=== PATIENT | female | born 1940 | race Caucasian/White ===

== ENCOUNTER 2017-12-22 15:07 | Observation (INO) | payer MEDICARE, SELFPAY ==
[2017-12-22] VITALS (10 sets, daily range): BP systolic 115–146; BP diastolic 38–70; PULSE 78–96; RESP 16–18; TEMP 36.7–36.9; O2SAT 92–99; BMI 37.0; BMI 36.1
--- NOTE | 2017-12-22 15:31 | EKG12_ITS ---
Test Reason : OTHER PAIN Blood Pressure : / mmHG Vent. Rate : 075 BPM Atrial Rate : 075 BPM P-R Int : 218 ms QRS Dur : 108 ms QT Int : 388 ms P-R-T Axes : 069 -23 035 degrees QTc Int : 433 ms Sinus rhythm with 1st degree A-V block Otherwise normal ECG Confirmed by LYNNE SEGAL, MARIELLA ([id number]), clinical editor TRAM REZA ([id number]) on 12/24/2017 9:57:25 AM Referred By: GENESIS Confirmed By:MARIELLA BATISTA MD
--- NOTE | 2017-12-22 15:31 | CT_ITS ---
STUDY: CTA CHEST REASON FOR EXAM: Female, 77 years old. Acute chest and back pain RADIATION DOSAGE (If Supplied By Facility): CTDIvol = ( 15.76 ) mGy, DLP = ( 558.47 ) mGycm TECHNIQUE: The examination was performed with the intravenous administration of 100 ml of Isovue 370 contrast material. Post-processing of the angiographic images was performed, with multiplanar reformation and 3D reconstruction. Individualized dose optimization techniques were used for this CT. COMPARISON: None. FINDINGS: Normal enhancement of the main pulmonary artery and right and left pulmonary arteries. Normal enhancement of the bilateral peripheral pulmonary arteries. There is no demonstrated pulmonary embolism. There is atherosclerotic calcification of the aortic arch with tortuosity. There is no demonstrated aortic dissection. Normal heart and pericardium. There are calcifications of the coronary arteries. Normal mediastinum. Normal hilar regions. There is peribronchial thickening. The lungs are hyper expanded, with flattening of the hemidiaphragms. Chronic interstitial changes in both lung gaona, no superimposed infiltrate or effusion. Normal pleura. Normal chest wall structures. There are extensive degenerative changes of thoracic spine with an increased kyphosis. Limited cuts through the upper abdomen show a retrocardiac hiatal hernia. CT/CTA Chest W/WO Contrast IMPRESSION: No demonstrated PE, or thoracic aortic aneurysm or dissection. Chronic interstitial changes in both lung gaona, no superimposed acute pulmonary process Calcified coronary vessels Extensive degenerative bony changes with bridging anterior osteophytic spurs and increased kyphosis Electronically Signed: Erwin Lizama MD at 17:07 EDT , Service support ,
--- NOTE | 2017-12-22 15:37 | ED.DCSUM_ITS ---
- ER Visit Summary Date of Service: 12/22/17 Chief Complaint: [] Upper back pain while eating lunch today History of Present Illness: The patient is a 77 F [] she complains of pain to the upper back that went from the left scapular to the right scapula today while eating lunch, this occurred about an hour or 2 ago, she now indicates the pain has localized to the left scapular region. She has had no nausea or vomiting no fever no cough no actual chest pain, she has no history of ID PE or DVT or dissection. She indicates using a chicken sandwich nothing that could have made her L she is has no dysphasia or dysphonia or difficulty swallowing and no other complaints, she has full range of motion of her left upper extremity movement of the shoulder and left arm not necessarily exacerbate her pain, she has had no numbness weakness or paresthesias and again no chest pain or abdominal pain Physical Examination: [] She is resting comfortably in the bed she is a frail- appearing woman she has sort short stature, she is hunched over and she has a chronic curvature to her upper spine, she indicates the pain is localized to her left scapular area the lungs are clear the heart tones are unremarkable the C- spine T-spine lumbar spine are unremarkable palpation of the left scapular area reveals no exacerbation of her pain, she has full range of motion of her upper extremities bilaterally, capillary refill to the hands and pulses are symmetric neurologically she is awake alert moving all 4 with normal strength the lumbar back abdomen and pelvis lower extremities are unremarkable her speech is easy to understand and clear. Test Results: [] Emergency Department Course and Treatment: [] The etiology of the symptoms are unclear she is not prone to this type of pain she was feeling fine before she started eating lunch it is not clear if the lunch actually did do with her symptoms, given her age and the fact she is having upper back pain the differential would include ID dissection PE etc. comprehensive workup labs EKG troponin CTA The patient's laboratory workup is unremarkable initial EKG negative for anything acute, chest x-ray negative per radiology given her complaints of pain in her age she was sent for CTA that report is pending, she was remedicated with morphine continues to complain of pain in her left scapular area, she indicates she lives alone at home has a treasury associate that comes in once or twice a week she does not feel comfortable with discharge home because of her pain has no one to help her at home. Given all of the above given her age the sudden onset of this upper back pain the differential is rather extensive and it could certainly represent an anginal type equivalent, I believe would be appropriate to admit her for chest pain workup, I spoke with the hospitalist they will will admit her as long as CT CTA shows no signs of dissection,, CTA read by radiology as showing nothing acute no PE or dissection repeat troponin pending that will be checked by the admitting service Treatment Plan: [] Disposition: [] Admit stable Impression: [] Chest pain, left scapular pain, concern for angina This note was generated with [employer] dictation software. It may contain incorrect words, spelling, and punctuation that were not noted in review of the chart prior to signing ED Disposition - Plan for ED Patient: Chief Complaint: Other, Pain/Inj Referrals: Eric Gillespie MD [Primary Care Provider] -
[2017-12-22 15:53] LABS: Absolute Lymphocyte Count 1.22 X10^3/ul (0.83-4.51); Absolute Neutrophil Count 4.8 X10^3/uL (2.0-7.7); Basophil# 0.01 X10^3/uL; Basophil% 0.1 % (0-1); Eosinophil# 0.08 X10^3/uL; Eosinophils% 1.2 % (0-5); Hematocrit 41.5 % (37-47); Hemoglobin 13.6 g/dl (12.0-15.0); Lymphocyte # 1.22 X10^3/ul (4.0); Lymphocyte % 17.8 % (19-41); Mean Corp Hgb Conc 32.8 g/gl (32-36); Mean Corpuscular Hgb 29.8 pg (27.0-32.0); Mean Platelet Vol. 9.6 fl (6.2-12.0); Monocyte# 0.73 X10^3/uL; Monocyte% 10.7 % (0-10); Neutrophil % 70.1 % (47-70); POSITIVE COUNT NO; POSITIVE DIFFERENTIAL NO; POSITIVE MORPHOLOGY NO; Platelet Count 243 K/mm3 (150-450); RBC Distribution Width CV 12.9 % (11.6-14.6); RBC Distribution Width SD 42.2 fl (35.1-43.9); Red Blood Count 4.56 M/mm3 (4.2-5.4); White Blood Count 6.9 K/mm3 (4.4-11.0)
[2017-12-22] MEDS: Morphine 4 MG/ML Syringe IV ×2 (16:00→17:35)
[2017-12-22] MEDS: Aspirin 81 MG TAB.CHEW 324 MG PO (16:00)
[2017-12-22] MEDS: Ondansetron 4 MG/2 ML Vial IV (16:01)
--- NOTE | 2017-12-22 16:05 | RAD_ITS ---
STUDY: X-RAY CHEST REASON FOR EXAM: Female, 77 years old. Acute shoulder pain TECHNIQUE: Single AP portable view of the chest. COMPARISON: 10/24/2012 FINDINGS: EKG leads overlie the chest Lungs are hyperexpanded with chronic interstitial changes, no superimposed acute pulmonary process. There is no demonstrated pleural abnormality. Normal size heart. Normal mediastinum and quinton. Normal visualized pulmonary arteries. Normal visualized aortic arch and descending thoracic aorta. There are diffuse degenerative changes of the visualized thoracic spine. There is degenerative osteoarthritis of the bilateral shoulders. There is no demonstrated abnormality of the visualized soft tissue structures of the upper abdomen. RAD/Chest 1 View (Portable) IMPRESSION: Hyperexpanded lungs with chronic interstitial changes, no superimposed acute pulmonary process Electronically Signed: Erwin Lizama MD at 16:41 EDT , Service support ,
[2017-12-22 16:10] LABS: Anion Gap 6 (5-15); BUN 8 mg/dL (7-18); BUN/Creat Ratio 9.6 RATIO (10-20); Chloride 95 mmol/L (98-107); Creatinine, Serum 0.83 mg/dL (0.55-1.02); EST Glomerular Filtration Rate 71 mL/min (>60); Est Glom Filt Rate - Afr Amer 85 mL/min (>60); Estimated Creatinine Clearance 69.63 ml/min; Glucose 142 mg/dL (74-106); Potassium 3.6 mmol/L (3.5-5.1); Sodium Level 135 mmol/L (136-145)
[2017-12-22 16:18] LABS: BNP,B-Type NATRIURETIC PEPTIDE 46.7 pg/mL (0-100)
--- NOTE | 2017-12-22 16:34 | EKG12_ITS ---
Test Reason : REPEAT Blood Pressure : / mmHG Vent. Rate : 081 BPM Atrial Rate : 081 BPM P-R Int : 224 ms QRS Dur : 104 ms QT Int : 380 ms P-R-T Axes : 073 -27 031 degrees QTc Int : 441 ms Sinus rhythm with 1st degree A-V block Otherwise normal ECG Confirmed by LYNNE SEGAL, MARIELLA ([id number]), art editor TRAM REZA ([id number]) on 12/24/2017 9:57:42 AM Referred By: GENESIS Confirmed By:MARIELLA BATISTA MD
--- NOTE | 2017-12-22 17:21 | PCM.HP.STD ---
<Bianca Garrison - Last Filed: 12/22/17 17:34> Problem List (1) Hypothyroidism Status: Chronic (2) HLD (hyperlipidemia) Status: Chronic (3) Kyphosis Status: Chronic (4) HTN (hypertension) Status: Chronic History of Present Illness Date of Admission: 12/22/17 Chief Complaint: Intractable upper back pain. The patient is a 77 year old F who presents emergency room due to intractable upper back pain. Patient states she was eating lunch when she suddenly developed sharp pain across her upper back. She denies radiation of pain. Denies chest pain. Denies shortness of breath, dizziness, lightheadedness. She states pain has improved. Continues to have pain in the left scapula area. Tenderness to palpation. Denies cardiac history. Denies history of back pain. Patient has significant kyphosis. Patient denies recent falls or injury. She states she does have a history of falls, most recently February 2017. Lives home alone. Does not use assistive devices. Her past medical history includes hypertension, hyperlipidemia, hypothyroidism, osteoporosis. Past Medical History Past Medical History (Chronic Problems): Chronic Problems Kyphosis (Chronic) HTN (hypertension) (Chronic) Hypothyroidism (Chronic) HLD (hyperlipidemia) (Chronic) Allergies No Known Allergies Allergy (Verified 12/22/17 15:13) Home Medications: Ambulatory Orders Medication Instructions Recorded Calcium Carbonate [Calcium] 600 mg PO BID 11/09/14 Cholecalciferol (VIT D3) [Vitamin 2,000 unit PO DAILY 11/09/14 D] Hydrochlorothiazide [Hctz] 25 mg PO DAILY 11/09/14 Metoprolol Tartrate [Lopressor 12.5 mg PO BID 11/09/14 (Beta [place])] Multivit-Min/FA/Lycopen/Lutein 1 each PO DAILY 11/09/14 [Centrum Silver Tablet] [place]-3 Fatty Acids/Fish Oil [Fish 1 each PO DAILY 11/09/14 Oil 1,000 mg Capsule] Potassium Chloride [Klor-Con M20] 20 meq PO DAILY 11/09/14 Simvastatin [Zocor] 20 mg PO QHS 11/09/14 Levothyroxine Sodium 100 mcg PO DAILY 12/22/17 Vit A/Vit C/Vit E/Zinc/Copper 1 tab PO DAILY 12/22/17 [Preservision Areds Softgel] Surgical History: - - Open reduction and internal fixation, left radius fracture, three-part with volar wrist plating Psychiatric History: No pertinent psych hx 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 Lives: Alone Smoking Status: Never smoker Alcohol: None Drugs: None - *Family History Maternal History Items: High Cholesterol, Heart Disease Paternal History Items: No pertinent history Review of Systems Constitutional: Denies: Chills, Fever, Weight Change HEENT: Denies: Head Aches, Sinus Congestion, Sinus Drainage Cardiovascular: Denies: Chest Pain, Light Headedness, Palpitations, Syncope Respiratory: Denies: Cough, Shortness of breath at rest, Sputum production Gastrointestinal: Denies: Abdominal Pain, Nausea, Vomiting Genitourinary: Denies: Dysuria Musculoskeletal: Reports: - - Back pain, left scapula area pain. Denies: Arm Pain Skin: Denies: Rash, Wounds Neurological: Denies: Numbness, Tingling, Focal weakness Psychiatric: Denies: Anxiety, Depression, Homicidal Ideations, Suicidal Ideations Hematologic/ Lymphatic: Denies: Easy Bruising, Easy Bleeding VTE Information - Inpt Only VTE Present on Admission: No VTE Mechan Device Prophylaxis: None VTE Pharm Prophylaxis ordered?: Yes - Physical Exam General: Alert, Oriented x3, Cooperative, No apparent distress HEENT: Atraumatic, PERRLA, EOMI, Normocephalic Neck: Supple, No JVD, Negative Carotid Bruits Lungs: Clear to auscultation, Normal air movement Cardiovascular: Regular rate, Regular Rhythm, Normal S1, Normal S2, No murmurs Abdomen: Bowel Sounds Present, Soft, Non Tender, Obese Extremities: No clubbing, No cyanosis, No edema, Capillary Refill Less than 3 Seconds, No Calf Tenderness Skin: No rashes, No breakdown Musculoskeletal: Tenderness - To palpation left scapular area Neurological: Cranial nerves II-XII grossly intact, Neuro grossly intact Psych/Mental Status: Normal Affect, Appropriate Vital Signs Temp Pulse Resp BP Pulse Ox 98.1 F 88 17 115/42 L 98 12/22/17 15:09 12/22/17 17:14 12/22/17 17:14 12/22/17 17:14 12/22/17 17:14 Oxygen Delivery Method Room Air Weight: 171 lb 4.787 oz Body Mass Index (BMI) 37.0 Laboratory Tests Past 24 Hrs 12/22/17 12/22/1712/22/18 15:40 15:40 15:40 WBC 6.9 RBC 4.56 Hgb 13.6 Hct 41.5 MCV 91.0 MCH 29.8 MCHC 32.8 RDW 12.9 RDW Differential 42.2 Plt Count 243 MPV 9.6 Immature Gran % (Auto) 0.100 Neut % (Auto) 70.1 H Lymph % (Auto) 17.8 L Ford % (Auto) 10.7 H Eos % (Auto) 1.2 Baso % (Auto) 0.1 Absolute Neuts (auto) 4.8 Absolute Lymphs (auto) 1.22 Total Counted Not Reportable Sodium 135 L Potassium 3.6 Chloride 95 L Carbon Dioxide 34.0 H Anion Gap 6 BUN 8 Creatinine 0.83 Estim Creat Clear Calc 69.63 Est GFR (MDRD) Af Amer 85 Est GFR (MDRD) Non-Af 71 BUN/Creatinine Ratio 9.6 L Glucose 142 H Calcium 9.0 Troponin I < 0.015 B-Natriuretic Peptide 46.7 Assessment/Plan 1. Intractable back pain-chest CTA without evidence of PE or dissection. Chronic interstitial changes in both lungs. No acute pulmonary process. Extensive degenerative bony changes with bridging anterior osteophytic spurs and increased kyphosis. EKG on admission without acute changes. Troponin negative x1. Cycle enzymes. Repeat EKG in a.m. Rule out cardiac etiology. Feel this is musculoskeletal in nature given underlying kyphosis. Left scapular area has tenderness to palpation. PT/OT. PRN pain regimen. Patient lives alone, history of falls. CM consult to assess home needs. 2. Hypertension-stable, continue home hydrochlorothiazide, metoprolol regimen. 3. Hypothyroidism-continue Synthroid regimen. 4. Osteoporosis-continue calcium/vitamin D supplementation. 5. Hyperlipidemia-continue statin. 6. Obesity-encourage diet lifestyle modifications. DVT prophylaxis- Lovenox sc This patient was seen by SHANEKA Pendleton under the supervision of Dr. Gibbs. <Ivet Gibbs - Last Filed: 12/22/17 18:31> History of Present Illness The patient is a 77 year old F [] Past Medical History Allergies No Known Allergies Allergy (Verified 12/22/17 15:13) - Physical Exam Vital Signs Temp Pulse Resp BP Pulse Ox 98.5 F 86 16 144/63 H 94 10/16/18 18:08 12/22/17 18:08 12/22/17 18:08 12/22/17 18:08 12/22/17 18:08 Oxygen Delivery Method Room Air Weight: 166 lb 14.239 oz Body Mass Index (BMI) 36.1 Laboratory Tests Past 24 Hrs 12/22/17 12/22/17 12/22/17 15:40 15:40 15:40 WBC 6.9 RBC 4.56 Hgb 13.6 Hct 41.5 MCV 91.0 MCH 29.8 MCHC 32.8 RDW 12.9 RDW Differential 42.2 Plt Count 243 MPV 9.6 Immature Gran % (Auto) 0.100 Neut % (Auto) 70.1 H Lymph % (Auto) 17.8 L Ford % (Auto) 10.7 H Eos % (Auto) 1.2 Baso % (Auto) 0.1 Absolute Neuts (auto) 4.8 Absolute Lymphs (auto) 1.22 Total Counted Not Reportable Sodium 135 L Potassium 3.6 Chloride 95 L Carbon Dioxide 34.0 H Anion Gap 6 BUN 8 Creatinine 0.83 Estim Creat Clear Calc 69.63 Est GFR (MDRD) Af Amer 85 Est GFR (MDRD) Non-Af 71 BUN/Creatinine Ratio 9.6 L Glucose 142 H Calcium 9.0 Troponin I < 0.015 B-Natriuretic Peptide 46.7 Clinical Impression(s) from Imaging Studies Chest CTA 12/22/17 15:31 IMPRESSION: No demonstrated PE, or thoracic aortic aneurysm or dissection. Chronic interstitial changes in both lung gaona, no superimposed acute pulmonary process Calcified coronary vessels Extensive degenerative bony changes with bridging anterior osteophytic spurs and increased kyphosis Electronically Signed: Erwin Lizama MD at 17:07 EDT , Service support , Chest X-Ray 12/22/17 16:05 IMPRESSION: Hyperexpanded lungs with chronic interstitial changes, no superimposed acute pulmonary process Electronically Signed: Erwin Lizama MD at 16:41 EDT , Service support , Assessment/Plan Hospitalist note: I am seeing this patient in conjunction with Bianca Garrison. I independently seen and examined the patient. History and physical, laboratory data and imaging studies reviewed and I concur with the above admission and treatment plan. Patient presented to the emergency room because of intractable upper back pain. It started around 2:30 PM today all of a sudden, it is on the underneath left shoulder blade, sharp pain, 5 out of 10 in severity, across her upper back, not radiating and without other associated symptoms and without aggravating or relieving factors. She denied shortness of breath, anterior chest pain, palpitation, dizziness or lightheadedness. Her vital signs were stable. Her routine blood work was unremarkable. EKG revealed normal sinus rhythm with first-degree AV block, IL interval was 218 ms. Troponin was negative. BNP was normal. CTA chest showed no PE or dissection, revealed extensive degenerative bony changes and increased kyphosis. Chest x-ray showed no acute findings. - Physical Exam General: Alert, Oriented x3, Cooperative, No apparent distress. HEENT: Atraumatic, PERRLA, EOMI. Neck: Supple, No JVD, Negative Carotid Bruits, Trachea Midline, Thyroid Normal. Lungs: Diminished breath sounds bilateral, otherwise clear, No rhonchi, No wheeze, No rales. Cardiovascular: Regular rate, Regular Rhythm, Normal S1, Normal S2, PMI Normal. Abdomen: Bowel Sounds Present, Soft, Non Tender, Non-Distended, No Hepato-splenomegaly. Extremities: No clubbing, No cyanosis, No edema Skin: No rashes, No breakdown Neurological: Neuro grossly intact Vital Signs are stable Assessment and plan: #1 intractable upper back pain: Unclear etiology. Could be due to extensive degenerative changes of the upper spine as well as increased kyphosis. Patient denies history of fall or trauma. It is unlikely due to CAD. EKG revealed no acute ischemic changes. Troponin is negative. CTA chest showed no PE or dissection. Vital signs are stable. Routine blood work was unremarkable. Plan: Admit to PCU for observation, cardiac monitoring, serial cardiac enzymes, repeat EKG tomorrow morning, pain control with IV morphine as needed, as needed OxyIR, PT OT evaluation and treatment. At this time, no indication for further cardiac workup except for serial cardiac enzymes and repeat EKG tomorrow morning. #2 other chronic medical problems: Stable, continue current medications as above. This note was generated with [employer] software. It may contain incorrect words, spelling, and punctuation that were not noted in checking the note before signing. Code Visit OBSV E&M: 66010 Initial observation care L3
--- NOTE | 2017-12-22 17:26 | HP.PCM_ITS ---
<Bianca Garrison - Last Filed: 12/22/17 17:34> Problem List (1) Hypothyroidism Status: Chronic (2) HLD (hyperlipidemia) Status: Chronic (3) Kyphosis Status: Chronic (4) HTN (hypertension) Status: Chronic History of Present Illness Date of Admission: 12/22/17 Chief Complaint: Intractable upper back pain. The patient is a 77 year old F who presents emergency room due to intractable upper back pain. Patient states she was eating lunch when she suddenly developed sharp pain across her upper back. She denies radiation of pain. Denies chest pain. Denies shortness of breath, dizziness, lightheadedness. She states pain has improved. Continues to have pain in the left scapula area. Tenderness to palpation. Denies cardiac history. Denies history of back pain. Patient has significant kyphosis. Patient denies recent falls or injury. She states she does have a history of falls, most recently February 2017. Lives home alone. Does not use assistive devices. Her past medical history includes hypertension, hyperlipidemia, hypothyroidism, osteoporosis. Past Medical History Past Medical History (Chronic Problems): Chronic Problems Kyphosis (Chronic) HTN (hypertension) (Chronic) Hypothyroidism (Chronic) HLD (hyperlipidemia) (Chronic) Allergies No Known Allergies Allergy (Verified 12/22/17 15:13) Home Medications: Ambulatory Orders Medication Instructions Recorded Calcium Carbonate [Calcium] 600 mg PO BID 11/09/14 Cholecalciferol (VIT D3) [Vitamin 2,000 unit PO DAILY 11/09/14 D] Hydrochlorothiazide [Hctz] 25 mg PO DAILY 11/09/14 Metoprolol Tartrate [Lopressor 12.5 mg PO BID 11/09/14 (Beta [place])] Multivit-Min/FA/Lycopen/Lutein 1 each PO DAILY 11/09/14 [Centrum Silver Tablet] [place]-3 Fatty Acids/Fish Oil [Fish 1 each PO DAILY 11/09/14 Oil 1,000 mg Capsule] Potassium Chloride [Klor-Con M20] 20 meq PO DAILY 11/09/14 Simvastatin [Zocor] 20 mg PO QHS 11/09/14 Levothyroxine Sodium 100 mcg PO DAILY 12/22/17 Vit A/Vit C/Vit E/Zinc/Copper 1 tab PO DAILY 12/22/17 [Preservision Areds Softgel] Surgical History: - - Open reduction and internal fixation, left radius fracture, three-part with volar wrist plating Psychiatric History: No pertinent psych hx CLINICAL OB History: No pertinent CLINICAL OB history Lives: Alone Smoking Status: Never smoker Alcohol: None Drugs: None - *Family History Maternal History Items: High Cholesterol, Heart Disease Paternal History Items: No pertinent history Review of Systems Constitutional: Denies: Chills, Fever, Weight Change HEENT: Denies: Head Aches, Sinus Congestion, Sinus Drainage Cardiovascular: Denies: Chest Pain, Light Headedness, Palpitations, Syncope Respiratory: Denies: Cough, Shortness of breath at rest, Sputum production Gastrointestinal: Denies: Abdominal Pain, Nausea, Vomiting Genitourinary: Denies: Dysuria Musculoskeletal: Reports: - - Back pain, left scapula area pain. Denies: Arm Pain Skin: Denies: Rash, Wounds Neurological: Denies: Numbness, Tingling, Focal weakness Psychiatric: Denies: Anxiety, Depression, Homicidal Ideations, Suicidal Ideatio ns Hematologic/ Lymphatic: Denies: Easy Bruising, Easy Bleeding VTE Information - Inpt Only VTE Present on Admission: No VTE Mechan Device Prophylaxis: None VTE Pharm Prophylaxis ordered?: Yes - Physical Exam General: Alert, Oriented x3, Cooperative, No apparent distress HEENT: Atraumatic, PERRLA, EOMI, Normocephalic Neck: Supple, No JVD, Negative Carotid Bruits Lungs: Clear to auscultation, Normal air movement Cardiovascular: Regular rate, Regular Rhythm, Normal S1, Normal S2, No murmurs Abdomen: Bowel Sounds Present, Soft, Non Tender, Obese Extremities: No clubbing, No cyanosis, No edema, Capillary Refill Less than 3 Seconds, No Calf Tenderness Skin: No rashes, No breakdown Musculoskeletal: Tenderness - To palpation left scapular area Neurological: Cranial nerves II-XII grossly intact, Neuro grossly intact Psych/Mental Status: Normal Affect, Appropriate Vital Signs Temp Pulse Resp BP Pulse Ox 98.1 F 88 17 115/42 L 98 12/22/17 15:09 12/22/17 17:14 12/22/17 17:14 12/22/17 17:14 12/22/17 17:14 Oxygen Delivery Method Room Air Weight: 171 lb 4.787 oz Body Mass Index (BMI) 37.0 Laboratory Tests Past 24 Hrs 1012/22/17 12/22/17 15:40 15:40 15:40 WBC 6.9 RBC 4.56 Hgb 13.6 Hct 41.5 MCV 91.0 MCH 29.8 MCHC 32.8 RDW 12.9 RDW Differential 42.2 Plt Count 243 MPV 9.6 Immature Gran % (Auto) 0.100 Neut % (Auto) 70.1 H Lymph % (Auto) 17.8 L [place] % (Auto) 10.7 H Eos % (Auto) 1.2 Baso % (Auto) 0.1 Absolute Neuts (auto) 4.8 Absolute Lymphs (auto) 1.22 Total Counted Not Reportable Sodium 135 L Potassium 3.6 Chloride 95 L Carbon Dioxide 34.0 H Anion Gap 6 BUN 8 Creatinine 0.83 Estim Creat Clear Calc 69.63 Est GFR (MDRD) Af Amer 85 Est GFR (MDRD) Non-Af 71 BUN/Creatinine Ratio 9.6 L Glucose 142 H Calcium 9.0 Troponin I < 0.015 B-Natriuretic Peptide 46.7 Assessment/Plan 1. Intractable back pain-chest CTA without evidence of PE or dissection. Chronic interstitial changes in both lungs. No acute pulmonary process. Extensive degenerative bony changes with bridging anterior osteophytic spurs and increased kyphosis. EKG on admission without acute changes. Troponin negative x1. Cycle enzymes. Repeat EKG in a.m. Rule out cardiac etiology. Feel this is musculoskeletal in nature given underlying kyphosis. Left scapular area has tenderness to palpation. PT/OT. PRN pain regimen. Patient lives alone, history of falls. CM consult to assess home needs. 2. Hypertension-stable, continue home hydrochlorothiazide, metoprolol regimen. 3. Hypothyroidism-continue Synthroid regimen. 4. Osteoporosis-continue calcium/vitamin D supplementation. 5. Hyperlipidemia-continue statin. 6. Obesity-encourage diet lifestyle modifications. DVT prophylaxis- Lovenox sc This patient was seen by SHANEKA Pendleton under the supervision of Dr. Gibbs. <Ivet Gibbs - Last Filed: 12/22/17 18:31> History of Present Illness The patient is a 77 year old F [] Past Medical History Allergies No Known Allergies Allergy (Verified 12/22/17 15:13) - Physical Exam Vital Signs Temp Pulse Resp BP Pulse Ox 98.5 F 86 16 144/63 H 94 12/22/17 18:08 12/22/17 18:08 12/22/17 18:08 12/22/17 18:08 12/22/17 18:08 Oxygen Delivery Method Room Air Weight: 166 lb 14.239 oz Body Mass Index (BMI) 36.1 Laboratory Tests Past 24 Hrs 12/22/17 12/22/17 12/22/17 15:40 15:40 15:40 WBC 6.9 RBC 4.56 Hgb 13.6 Hct 41.5 MCV 91.0 MCH 29.8 MCHC 32.8 RDW 12.9 RDW Differential 42.2 Plt Count 243 MPV 9.6 Immature Gran % (Auto) 0.100 Neut % (Auto) 70.1 H Lymph % (Auto) 17.8 L [place] % (Auto) 10.7 H Eos % (Auto) 1.2 Baso % (Auto) 0.1 Absolute Neuts (auto) 4.8 Absolute Lymphs (auto) 1.22 Total Counted Not Reportable Sodium 135 L Potassium 3.6 Chloride 95 L Carbon Dioxide 34.0 H Anion Gap 6 BUN 8 Creatinine 0.83 Estim Creat Clear Calc 69.63 Est GFR (MDRD) Af Amer 85 Est GFR (MDRD) Non-Af 71 BUN/Creatinine Ratio 9.6 L Glucose 142 H Calcium 9.0 Troponin I < 0.015 B-Natriuretic Peptide 46.7 Clinical Impression(s) from Imaging Studies Chest CTA 12/22/17 15:31 IMPRESSION: No demonstrated PE, or thoracic aortic aneurysm or dissection. Chronic interstitial changes in both lung ga[place], no superimposed acute pulmonary process Calcified coronary vessels Extensive degenerative bony changes with bridging anterior osteophytic spurs and increased kyphosis Electronically Signed: Erwin Lizama MD at 17:07 EDT , Service support , Chest X-Ray 12/22/17 16:05 IMPRESSION: Hyperexpanded lungs with chronic interstitial changes, no superimposed acute pulmonary process Electronically Signed: Erwin Lizama MD at 16:41 EDT , Service support , Assessment/Plan Hospitalist note: I am seeing this patient in conjunction with Bianca Garrison. I independently seen and examined the patient. History and physical, laboratory data and imaging studies reviewed and I concur with the above admission and treatment plan. Patient presented to the emergency room because of intractable upper back pain. It started around 2:30 PM today all of a sudden, it is on the underneath left shoulder blade, sharp pain, 5 out of 10 in severity, across her upper back, not radiating and without other associated symptoms and without aggravating or relieving factors. She denied shortness of breath, anterior chest pain, palpitation, dizziness or lightheadedness. Her vital signs were stable. Her routine blood work was unremarkable. EKG revealed normal sinus rhythm with first-degree AV block, DE interval was 218 ms. Troponin was negative. BNP was normal. CTA chest showed no PE or dissection, revealed extensive degenerative bony changes and increased kyphosis. Chest x-ray showed no acute findings. - Physical Exam General: Alert, Oriented x3, Cooperative, No apparent distress. HEENT: Atraumatic, PERRLA, EOMI. Neck: Supple, No JVD, Negative Carotid Bruits, Trachea Midline, Thyroid Normal. Lungs: Diminished breath sounds bilateral, otherwise clear, No rhonchi, No wheeze, No rales. Cardiovascular: Regular rate, Regular Rhythm, Normal S1, Normal S2, PMI Normal. Abdomen: Bowel Sounds Present, Soft, Non Tender, Non-Distended, No Hepato- splenomegaly. Extremities: No clubbing, No cyanosis, No edema Skin: No rashes, No breakdown Neurological: Neuro grossly intact Vital Signs are stable Assessment and plan: #1 intractable upper back pain: Unclear etiology. Could be due to extensive degenerative changes of the upper spine as well as increased kyphosis. Patient denies history of fall or trauma. It is unlikely due to CAD. EKG revealed no acute ischemic changes. Troponin is negative. CTA chest showed no PE or dissection. Vital signs are stable. Routine blood work was unremarkable. Plan : Admit to PCU for observation, cardiac monitoring, serial cardiac enzymes, repeat EKG tomorrow morning, pain control with IV morphine as needed, as needed OxyIR, PT OT evaluation and treatment. At this time, no indication for further cardiac workup except for serial cardiac enzymes and repeat EKG tomorrow morning. #2 other chronic medical problems: Stable, continue current medications as above. This note was generated with Emulisation software. It may contain incorrect words, spelling, and punctuation that were not noted in checking the note before signing. Code Visit OBSV E&M: 58359 Initial observation care L3
[2017-12-22] MEDS: Atorvastatin Calcium 10 MG Tablet PO (21:25)
[2017-12-22] MEDS: Metoprolol Tartrate 25 MG Tablet PO (21:25)
[2017-12-23] VITALS (8 sets, daily range): BP systolic 145–150; BP diastolic 63–80; PULSE 64–94; RESP 16–18; TEMP 36.6–36.7; O2SAT 91–94
[2017-12-23] MEDS: 0.9% Normal Saline 1,000 ML 75 ML IV (02:24)
[2017-12-23] MEDS: Levothyroxine 100 MCG Tablet PO (05:42)
--- NOTE | 2017-12-23 05:55 | EKG12_ITS ---
Test Reason : AM EKG Blood Pressure : / mmHG Vent. Rate : 068 BPM Atrial Rate : 068 BPM P-R Int : 216 ms QRS Dur : 102 ms QT Int : 412 ms P-R-T Axes : 065 -19 014 degrees QTc Int : 438 ms Sinus rhythm with 1st degree A-V block Otherwise normal ECG When compared with ECG of 22-DEC-2017 16:45, MANUAL COMPARISON REQUIRED, DATA IS UNCONFIRMED Confirmed by LYNNE SEGAL, MARIELLA ([id number]), newspaper copy editor JAYLA ROMERO ([id number]) on 12/28/2017 10:57:36 AM Referred By: NELL Confirmed By:MARIELLA BATISTA MD
[2017-12-23 06:11] LABS: Absolute Lymphocyte Count 1.28 X10^3/ul (0.83-4.51); Absolute Neutrophil Count 5.3 X10^3/uL (2.0-7.7); Basophil# 0.01 X10^3/uL; Basophil% 0.1 % (0-1); Eosinophil# 0.07 X10^3/uL; Eosinophils% 0.9 % (0-5); Hematocrit 38.8 % (37-47); Hemoglobin 12.3 g/dl (12.0-15.0); Lymphocyte # 1.28 X10^3/ul (4.0); Lymphocyte % 16.9 % (19-41); Mean Corp Hgb Conc 31.7 g/gl (32-36); Mean Corpuscular Volume 91.5 fL (81-99); Mean Platelet Vol. 10.1 fl (6.2-12.0); Monocyte# 0.85 X10^3/uL; Monocyte% 11.2 % (0-10); Neutrophil # 5.33 X10^3/uL (2.7-7.7); Neutrophil % 70.5 % (47-70); Platelet Count 219 K/mm3 (150-450); RBC Distribution Width SD 42.8 fl (35.1-43.9); Red Blood Count 4.24 M/mm3 (4.2-5.4); White Blood Count 7.6 K/mm3 (4.4-11.0)
[2017-12-23 06:17] LABS: POSITIVE COUNT NO; POSITIVE DIFFERENTIAL NO; POSITIVE MORPHOLOGY NO
[2017-12-23 06:32] LABS: Anion Gap 9 (5-15); BUN 7 mg/dL (7-18); BUN/Creat Ratio 16.8 RATIO (10-20); Calcium,Total 8.1 mg/dL (8.5-10.1); Chloride 100 mmol/L (98-107); Creatinine, Serum 0.42 mg/dL (0.55-1.02); EST Glomerular Filtration Rate 157 mL/min (>60); Est Glom Filt Rate - Afr Amer 190 mL/min (>60); Glucose 99 mg/dL (74-106); Sodium Level 136 mmol/L (136-145)
[2017-12-23] MEDS: hydroCHLOROthiazide 25 MG Tablet PO (09:57)
[2017-12-23] MEDS: Metoprolol Tartrate 25 MG Tablet PO (09:57)
[2017-12-23] MEDS: Enoxaparin 40 MG/0.4 ML Syringe SC (09:57)
--- NOTE | 2017-12-23 10:29 | PCM.DC ---
- Discharge Diagnoses Current Active Problems: Current Active and Chronic Problems Kyphosis (Chronic) HTN (hypertension) (Chronic) You will use the following diet at home:: No restrictions Discharge Activity: Return to Normal Activity Call your doctor if you observe: Shortness of breath, Dizziness, Fainting spells, Chest pain Allergies/Adverse Reactions: Allergies No Known Allergies Allergy (Verified 12/22/17 15:13) Medications to take at Discharge Calcium Carbonate [Calcium] 600 mg PO BID 11/09/14 Cholecalciferol (VIT D3) [Vitamin D3] 2,000 unit PO DAILY 11/09/14 Hydrochlorothiazide [Hctz] 25 mg PO DAILY 11/09/14 Metoprolol Tartrate [Lopressor (beta [place])] 25 mg PO BID 11/09/14 Multivit-Min/FA/Lycopen/Lutein [Centrum Silver Tablet] 1 each PO QHS 11/09/14 [place]-3 Fatty Acids/Fish Oil [Fish Oil 1,000 mg Capsule] 1 each PO DAILY 11/09/14 Potassium Chloride [Klor-Con M20] 20 meq PO DAILY 11/09/14 Simvastatin [Zocor] 20 mg PO QHS 11/09/14 Levothyroxine Sodium 100 mcg PO DAILY 12/22/17 Vit A/Vit C/Vit E/Zinc/Copper [Preservision Areds Softgel] 1 tab PO BID 12/22/17 Primary Care Physician: Eric Gillespie MD [Primary Care Provider] - Please follow up with your Primary Care Physician in: 1 Week Test Results: Test results from this visit will be discussed in further detail at your follow-up appointment, if applicable. Proposed Discharge Date: 12/23/17
--- NOTE | 2017-12-23 10:36 | PCM.DC.SUM ---
<Bianca Garrison - Last Filed: 12/23/17 10:43> Discharge Date and Diagnosis - Problem List Patient Problems: Active and Suspected Problems Back pain (Acute) Date of Admission: 12/22/17 Date of Discharge: 12/23/17 - Primary Discharge Diagnosis 1. Intractable upper back pain, suspected secondary to chronic degenerative changes - Secondary Discharge Diagnosis Chronic Problems Kyphosis (Chronic) HTN (hypertension) (Chronic) Hypothyroidism (Chronic) HLD (hyperlipidemia) (Chronic) Hospital Course and Treatment Imaging Results: Diagnostic Data Chest CTA 12/22/17 15:31 IMPRESSION: No demonstrated PE, or thoracic aortic aneurysm or dissection. Chronic interstitial changes in both lung gaona, no superimposed acute pulmonary process Calcified coronary vessels Extensive degenerative bony changes with bridging anterior osteophytic spurs and increased kyphosis Electronically Signed: Erwin Lizama MD at 17:07 EDT , Service support , Chest X-Ray 12/22/17 16:05 IMPRESSION: Hyperexpanded lungs with chronic interstitial changes, no superimposed acute pulmonary process Electronically Signed: Erwin Lizama MD at 16:41 EDT , Service support , Operations: None Procedures: None Summary of Care Provided: The patient is a 77 year old F admitted 12/22/17 due to upper back pain. Back pain has since resolved. 1. Intractable back pain-chest CTA without evidence of PE or dissection. Chronic interstitial changes in both lungs. No acute pulmonary process. Extensive degenerative bony changes with bridging anterior osteophytic spurs and increased kyphosis. EKG on admission without acute changes. Troponin negative x3. Cardiac etiology ruled out. Suspect musculoskeletal in nature given underlying kyphosis. Left scapular area has tenderness to palpation. Patient denies further pain. Follow up with PCP in 1 week. 2. Hypertension-stable, continue home hydrochlorothiazide, metoprolol regimen. 3. Hypothyroidism-continue Synthroid regimen. 4. Osteoporosis-continue calcium/vitamin D supplementation. 5. Hyperlipidemia-continue statin. 6. Obesity General: Alert, Oriented x3, Cooperative, No apparent distress HEENT: Atraumatic, PERRLA, EOMI, Normocephalic Neck: Supple, No JVD, Negative Carotid Bruits Lungs: Clear to auscultation, Normal air movement Cardiovascular: Regular rate, Regular Rhythm, Normal S1, Normal S2, No murmurs Abdomen: Bowel Sounds Present, Soft, Non Tender, Obese Extremities: No clubbing, No cyanosis, No edema, Capillary Refill Less than 3 Seconds, No Calf Tenderness Skin: No rashes, No breakdown Musculoskeletal: Tenderness - To palpation left scapular area Neurological: Cranial nerves II-XII grossly intact, Neuro grossly intact Psych/Mental Status: Normal Affect, Appropriate Patient seen exam prior to discharge. Physical assessment as noted above. Patient stable for discharge home with follow-up with primary care physician in 1 week. This patient was seen by SHANEKA Pendleton under the supervision of Dr. Wheat. Patient Problems: Active and Suspected Problems Back pain (Acute) - Physical Exam Vital Signs Temp Pulse Resp BP Pulse Ox 97.8 F 79 16 145/80 H 92 12/23/17 08:31 12/23/17 09:57 12/23/17 08:31 12/23/17 08:31 12/23/17 08:31 Oxygen Delivery Method Room Air Weight: 166 lb 14.239 oz Body Mass Index (BMI) 36.1 Intake and Output for Last 24 Hours 12/21/17 12/22/17 12/23/17 23:59 23:59 23:59 Intake Total 1419 / 1419 590 / 590 Balance 1419 / 1419 590 / 590 Laboratory Tests Past 24 Hrs 12/22/17 12/22/17 12/22/17 15:40 15:40 15:40 WBC 6.9 RBC 4.56 Hgb 13.6 Hct 41.5 MCV 91.0 MCH 29.8 MCHC 32.8 RDW 12.9 RDW Differential 42.2 Plt Count 243 MPV 9.6 Immature Gran % (Auto) 0.100 Neut % (Auto) 70.1 H Lymph % (Auto) 17.8 L [place] % (Auto) 10.7 H Eos % (Auto) 1.2 Baso % (Auto) 0.1 Absolute Neuts (auto) 4.8 Absolute Lymphs (auto) 1.22 Total Counted Not Reportable Sodium 135 L Potassium 3.6 Chloride 95 L Carbon Dioxide 34.0 H Anion Gap 6 BUN 8 Creatinine 0.83 Estim Creat Clear Calc 69.63 Est GFR (MDRD) Af Amer 85 Est GFR (MDRD) Non-Af 71 BUN/Creatinine Ratio 9.6 L Glucose 142 H Calcium 9.0 Troponin I < 0.015 B-Natriuretic Peptide 46.7 12/22/17 12/22/17 12/23/17 19:00 21:53 05:46 WBC 7.6 RBC 4.24 Hgb 12.3 Hct 38.8 MCV 91.5 MCH 29.0 MCHC 31.7 L RDW 13.0 RDW Differential 42.8 Plt Count 219 MPV 10.1 Immature Gran % (Auto) 0.400 Neut % (Auto) 70.5 H Lymph % (Auto) 16.9 L [place] % (Auto) 11.2 H Eos % (Auto) 0.9 Baso % (Auto) 0.1 Absolute Neuts (auto) 5.3 Absolute Lymphs (auto) 1.28 Total Counted Not Reportable Sodium Potassium Chloride Carbon Dioxide Anion Gap BUN Creatinine Estim Creat Clear Calc Est GFR (MDRD) Af Amer Est GFR (MDRD) Non-Af BUN/Creatinine Ratio Glucose Calcium Troponin I < 0.015 < 0.015 B-Natriuretic Peptide 12/23/17 05:46 WBC RBC Hgb Hct MCV MCH MCHC RDW RDW Differential Plt Count MPV Immature Gran % (Auto) Neut % (Auto) Lymph % (Auto) [place] % (Auto) Eos % (Auto) Baso % (Auto) Absolute Neuts (auto) Absolute Lymphs (auto) Total Counted Sodium 136 Potassium 4.0 Chloride 100 Carbon Dioxide 27.0 Anion Gap 9 BUN 7 Creatinine 0.42 L Estim Creat Clear Calc 56.30 Est GFR (MDRD) Af Amer 190 Est GFR (MDRD) Non-Af 157 BUN/Creatinine Ratio 16.8 Glucose 99 Calcium 8.1 L Troponin I B-Natriuretic Peptide Discharge Diet: No Restrictions Discharge Activity: Return to Normal Activity Call your doctor if you observe: Shortness of breath, Dizziness, Fainting spells, Chest pain Home Medications: Medications to take at Discharge Calcium Carbonate [Calcium] 600 mg PO BID 11/09/14 Cholecalciferol (VIT D3) [Vitamin D3] 2,000 unit PO DAILY 11/09/14 Hydrochlorothiazide [Hctz] 25 mg PO DAILY 11/09/14 Metoprolol Tartrate [Lopressor (beta kwesi)] 25 mg PO BID 11/09/14 Multivit-Min/FA/Lycopen/Lutein [Centrum Silver Tablet] 1 each PO QHS 11/09/14 [place]-3 Fatty Acids/Fish Oil [Fish Oil 1,000 mg Capsule] 1 each PO DAILY 11/09/14 Potassium Chloride [Klor-Con M20] 20 meq PO DAILY 11/09/14 Simvastatin [Zocor] 20 mg PO QHS 11/09/14 Levothyroxine Sodium 100 mcg PO DAILY 12/22/17 Vit A/Vit C/Vit E/Zinc/Copper [Preservision Areds Softgel] 1 tab PO BID 12/22/17 Primary Care Physician: Eric Gillespie MD [Primary Care Provider] - Please follow up with your Primary Care Physician in: 1 Week Disposition: Home Minutes spent on discharge:: 35 Patient Condition:: Stable Medical Necessity - Tobacco Use Smoking Status: Never smoker Meaningful Use Info Meaningful Use Diagnoses (Choose all that apply): None applicable <Montrell Wheat - Last Filed: 12/23/17 13:07> Discharge Date and Diagnosis - Secondary Discharge Diagnosis Chronic Problems Kyphosis (Chronic) HTN (hypertension) (Chronic) Hypothyroidism (Chronic) HLD (hyperlipidemia) (Chronic) Hospital Course and Treatment Operations: None Procedures: None Summary of Care Provided: Patient seen and examined independently. Data reviewed. I agree with the above note by the nurse practitioner. The patient is a 77 year old F presents with back pain shortly after she was eating radiating down her left arm. Patient underwent serial troponins were negative as was a CT angiogram of the chest that was also negative. Patient had no further events overnight. Patient denies any history of that in the past. On the CAT scan, patient did have noted scoliosis and arthritis. [place] that her back pain is more muscular skeletal rather than a cardiac equivalent and certainly not a dissection nor pulmonary embolism. [] - Physical Exam General: Alert, Cooperative, No apparent distress HEENT: Atraumatic, Normocephalic Abdomen: Obese, - Musculoskeletal: - - Kyphosis. No reproducible upper thoracic back pain Vital Signs Temp Pulse Resp BP Pulse Ox 36.6 C 94 16 145/80 H 92 12/23/17 08:31 12/23/17 10:56 12/23/17 08:31 12/23/17 08:31 12/23/17 08:31 Oxygen Delivery Method Room Air Weight: 75.7 kg Body Mass Index (BMI) 36.1 Intake and Output for Last 24 Hours 12/21/17 12/22/17 12/23/17 23:59 23:59 23:59 Intake Total 1419 / 1419 1548 / 1548 Balance 1419 / 1419 1548 / 1548 Laboratory Tests Past 24 Hrs 12/22/17 12/22/17 12/22/17 15:40 15:40 15:40 WBC 6.9 RBC 4.56 Hgb 13.6 Hct 41.5 MCV 91.0 MCH 29.8 MCHC 32.8 RDW 12.9 RDW Differential 42.2 Plt Count 243 MPV 9.6 Immature Gran % (Auto) 0.100 Neut % (Auto) 70.1 H Lymph % (Auto) 17.8 L [place] % (Auto) 10.7 H Eos % (Auto) 1.2 Baso % (Auto) 0.1 Absolute Neuts (auto) 4.8 Absolute Lymphs (auto) 1.22 Total Counted Not Reportable Sodium 135 L Potassium 3.6 Chloride 95 L Carbon Dioxide 34.0 H Anion Gap 6 BUN 8 Creatinine 0.83 Estim Creat Clear Calc 69.63 Est GFR (MDRD) Af Amer 85 Est GFR (MDRD) Non-Af 71 BUN/Creatinine Ratio 9.6 L Glucose 142 H Calcium 9.0 Troponin I < 0.015 B-Natriuretic Peptide 46.7 12/22/17 12/22/17 12/23/17 19:00 21:53 05:46 WBC 7.6 RBC 4.24 Hgb 12.3 Hct 38.8 MCV 91.5 MCH 29.0 MCHC 31.7 L RDW 13.0 RDW Differential 42.8 Plt Count 219 MPV 10.1 Immature Gran % (Auto) 0.400 Neut % (Auto) 70.5 H Lymph % (Auto) 16.9 L [place] % (Auto) 11.2 H Eos % (Auto) 0.9 Baso % (Auto) 0.1 Absolute Neuts (auto) 5.3 Absolute Lymphs (auto) 1.28 Total Counted Not Reportable Sodium Potassium Chloride Carbon Dioxide Anion Gap BUN Creatinine Estim Creat Clear Calc Est GFR (MDRD) Af Amer Est GFR (MDRD) Non-Af BUN/Creatinine Ratio Glucose Calcium Troponin I < 0.015 < 0.015 B-Natriuretic Peptide 12/23/17 05:46 WBC RBC Hgb Hct MCV MCH MCHC RDW RDW Differential Plt Count MPV Immature Gran % (Auto) Neut % (Auto) Lymph % (Auto) [place] % (Auto) Eos % (Auto) Baso % (Auto) Absolute Neuts (auto) Absolute Lymphs (auto) Total Counted Sodium 136 Potassium 4.0 Chloride 100 Carbon Dioxide 27.0 Anion Gap 9 BUN 7 Creatinine 0.42 L Estim Creat Clear Calc 56.30 Est GFR (MDRD) Af Amer 190 Est GFR (MDRD) Non-Af 157 BUN/Creatinine Ratio 16.8 Glucose 99 Calcium 8.1 L Troponin I B-Natriuretic Peptide Discharge Diet: No Restrictions Discharge Activity: Return to Normal Activity Call your doctor if you observe: Shortness of breath, Dizziness, Fainting spells, Chest pain Disposition: Home Minutes spent on discharge:: 35 Patient Condition:: Good Meaningful Use Info Meaningful Use Diagnoses (Choose all that apply): None applicable Code Visit OBSV E&M: 00406 Observation care discharge
== END 2017-12-23 10:29 | disposition home or self-care (01) ==
LOC: ED 15:40 → PCU 17:32
PROVIDERS: Admitting Provider Hospitalist; Emergency Provider Emergency Medicine; Family Provider Family Medicine; PCP Family Medicine
DX: M54.6 Pain in thoracic spine (principal); Z23 Encounter for immunization; I10 Essential (primary) hypertension; E03.9 Hypothyroidism, unspecified; M40.209 Unspecified kyphosis, site unspecified; E78.5 Hyperlipidemia, unspecified; M81.0 Age-related osteoporosis without current pathological fracture; E66.9 Obesity, unspecified; Z68.36 Body mass index [BMI] 36.0-36.9, adult; Z79.899 Other long term (current) drug therapy; Z71.3 Dietary counseling and surveillance
CPT/HCPCS: 36415; 71045; 71275; 80048; 83880; 84484; 85025; 93005; 96361; 96372; 96374; 96375; 96376; 97161; 97165; 99218; 99285; G0008; J7030; J7040; Q9967; 90686; A4216; G0378; J2405

== ENCOUNTER 2020-05-25 08:37 | Outpatient (RCR) | payer MEDICARE, SELFPAY ==
[2020-05-25] MEDS: COVID-19 VACC, MRNA(PFIZER)/PF 30 MCG/0.3 ML SYRINGE IM (12:00)
[2020-06-15] MEDS: COVID-19 VACC, MRNA(PFIZER)/PF 30 MCG/0.3 ML SYRINGE IM (13:59)
== END 2020-08-14 23:59 ==
LOC: IMMUN 08:37
PROVIDERS: PCP Family Medicine; Referring Provider Family Medicine; Visit Provider Family Medicine
DX: Z23 Encounter for immunization (principal)
CPT/HCPCS: 0001A; 0002A; 91300

== ENCOUNTER 2021-01-14 13:30 | Emergency (ER) | payer MEDICARE, SELFPAY ==
[2021-01-14 13:32] VITALS: BP 129/78; PULSE 78; RESP 18; TEMP 37.2; O2SAT 95; BMI 35.6
--- NOTE | 2021-01-14 15:59 | RAD_ITS ---
STUDY: X-RAY - PELVIS REASON FOR EXAM: Female, 80 years old. Injury/Pain TECHNIQUE: One view of the pelvis was obtained. COMPARISON: None. FINDINGS: There is a non-specific bowel gas pattern. Normal visualized soft tissue structures. There is diffuse demineralization of the osseous structures. There is narrowing with cortical sclerosis and osteophyte formation of the sacroiliac joint consistent with degenerative osteoarthritic changes. Normal visualized bilateral superior and inferior pubic rami. Normal pubic symphysis. Normal ischial tuberosities. Surgical hardware in the right femur free of complication. Normal right acetabulum. There is moderate articular joint space narrowing of the right hip. Normal visualized left femoral head. Normal left acetabulum. There is moderate articular joint space narrowing of the left hip. 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 Surgical hardware in the right femur free of complication Electronically Signed: Erwin Lizama MD at 16:35 EST , Service support ,
--- NOTE | 2021-01-14 15:59 | RAD_ITS ---
STUDY: X-RAY - RIGHT FEMUR REASON FOR STUDY: Female, 80 years old. Injury/Pain TECHNIQUE: 4 view(s) of the femur. COMPARISON: None. FINDINGS: There is diffuse demineralization of the femur. Normal visualized soft tissue structure. Surgical hardware in the proximal femur free of complication Age consistent right hip and knee joint arthrosis RAD/Femur Min 2 Views IMPRESSION: Demineralization, no demonstrated fracture Electronically Signed: Erwin Lizama MD at 16:42 EST , Service support ,
--- NOTE | 2021-01-14 15:59 | RAD_ITS ---
STUDY: X-RAY - RIGHT TIBIA AND FIBULA REASON FOR EXAM: Female, 80 years old. Injury/Pain TECHNIQUE: 4 view(s) of the tibia and fibula were obtained. COMPARISON: None. FINDINGS: There is demineralization of the tibia. There is demineralization of the fibula. There is no demonstrated acute fracture. There is non-specific soft tissue swelling. RAD/Tibia & Fibula 2 Views IMPRESSION: Profound osteopenia without acute fracture or suspicious osseous lesion. Soft tissue swelling around the ankle Electronically Signed: Erwin Lizama MD at 16:36 EST , Service support ,
--- NOTE | 2021-01-14 16:00 | ED.VIS.FALL ---
HPI HPI - Fall History of Present Illness Chief Complaint: Fall Informant: patient Occured/Mechanism Occurred: Weeks (2) Mechanism/Context: Yes same level fall Usually ambulates: Walker Pain/Injury Pain Location: lower extremity (Right) Quality of Pain: Aching Worsened by: Ambulation Relieved by: Rest Associated Symptoms Associated Symptoms: Negative for Parasthesias and Weakness Narrative Narrative: Patient presents with right lower extremity pain that began after a fall on January 01. Patient has been able to ambulate since the fall. Patient states she fell backwards. Patient denies any head injury or loss of consciousness. Patient denies any paresthesias or weakness. Patient states her pain is in her right hip, thigh, and knee. Patient states occasionally she has some pain in her lower leg. Patient denies any pain in her foot or ankle. [facility] Medical History (Updated 01/14/21 @ 17:[address] Montrell Anaya, ) HLD (hyperlipidemia) HTN (hypertension) Hypothyroid Home Medications Potassium Chloride [Klor-Con M20] 20 meq PO DAILY 11/09/14 [History Last Taken 12/22/17] calcium carbonate 600 mg PO BID 11/09/14 [History Last Taken 12/22/17 12:00] cholecalciferol (vitamin D3) [Vitamin D3] 2,000 unit PO DAILY 11/09/14 [History Last Taken 12/22/17] hydrochlorothiazide 25 mg PO DAILY 11/09/14 [History Last Taken 12/22/17] metoprolol tartrate 25 mg PO BID 11/09/14 [History Last Taken 12/22/17 09:00] botllvwu-kpu-FR-lycopen-lutein [Centrum Silver] 1 ea PO QHS 11/09/14 [History Last Taken 12/21/17] omega-3 fatty acids-fish oil [Fish Oil] 1 ea PO DAILY 11/09/14 [History Last Taken 12/22/17] simvastatin 20 mg PO QHS 11/09/14 [History Last Taken 12/21/17] levothyroxine 100 mcg PO DAILY 12/22/17 [History Last Taken 12/22/17] vitamins A,C,Q-qxga-ktjicn [PreserVision AREDS] 1 tab PO BID 12/22/17 [History Last Taken 12/22/17] Allergy/AdvReac Type Severity Reaction Status Date / Time No Known Allergies Allergy Verified 01/14/21 13:36 Surgical History (Updated 01/14/21 @ 16:[address] Montrell Anaya DO) History of open reduction and internal fixation (ORIF) procedure Social History Smoking Status: Never smoker ROS ROS ED Constitutional Constitutional ED: Denies chills or fever(s) Eyes Eyes: Denies blurry vision or change in vision ENT ENT ED: Reports rhinorrhea; Denies sore throat Cardiovascular Cardiovascular: Denies chest pain or palpitations Respiratory/Chest Respiratory/Chest: Denies cough or dyspnea Gastrointestinal Gastrointestinal: Denies nausea or vomiting Genitourinary Genitourinary ED: Denies dysuria or hematuria Musculoskeletal Musculoskeletal: Denies back pain or neck pain Integumentary Denies abscess or rash Neurologic Neurologic: Denies headache(s) or weakness Allergic/Immunologic Allergic/Immunologic ED: Denies mouth swelling or urticaria EXAM Physical Exam Const Vital Signs: 01/14/21 13:32 01/14/21 14:46 Temperature 99 F Temperature Source Temporal Pulse Rate 78 Respiratory Rate 18 Respiratory Effort Normal Non-Labored Respiratory Depth Normal Respiratory Pattern Normal Blood Pressure 129/78 H Blood Pressure Mean 95 Pulse Ox 95 Oxygen Delivery Method Room Air Room Air Positive well nourished and well developed General Appearance ED: well developed HEENT Reports normocephalic atraumatic Neck full ROM Resp normal respiratory effort and clear to auscultation bilaterally Cardio regular rate and regular rhythm GI non-tender Palpation: soft Extremity Extremity Narrative: There is tenderness over the right femur and hip area. There is also tenderness over the posterior aspect of the pelvis on the right. There is no bony crepitance or step-off. There is some mild pain with internal and external rotation of the lower extremity. Pedal pulses are equal bilateral. Sensation was intact to light touch in all digits. Neuro oriented x3, CN's II-XII intact bilaterally, moves all extremities, no focal motor deficits and no sensory deficits noted Sensorium / Orientation: alert Psych mental status grossly normal MDM MDM MDM Narrative Medical decision making narrative: X-rays of the pelvis were obtained. There is 1 view. On my interpretation, there is no acute fracture. There is osteopenia noted. There are some degenerative changes noted in the hip and sacroiliac joints. Radiologist also interpreted the x-ray and agrees. X-rays of the right femur were obtained. There are 4 views. On my interpretation, there is no acute fracture. There is osteopenia noted. There is no soft tissue swelling noted. Radiologist also interpreted the x-rays and agrees. X-rays of the right tibia and fibula were obtained. There are 4 views. On my interpretation, there is no acute fracture or dislocation. There is some osteopenia noted. There are some degenerative changes noted. There is no soft tissue swelling. Radiologist also interpreted the x-rays and agrees. Patient was advised of her findings. Patient was instructed use ice to the area. Patient was instructed to take Tylenol or ibuprofen as needed for pain. Patient was instructed to use her walker when ambulating. Patient was instructed to follow-up with her primary care physician in 3 to 5 days. Patient understood and was agreeable with the plan. All questions were answered. Radiography Diagnostic Testing: Clinical Impression(s) from Imaging Studies Femur X-Ray 01/14/21 15:59 IMPRESSION: Demineralization, no demonstrated fracture Electronically Signed: Erwin Lizama MD at 16:42 EST , Service support , Pelvis X-Ray 01/14/21 15:59 IMPRESSION: Demineralization of the osseous structures with age consistent hip and SI joint arthrosis. Surgical hardware in the right femur free of complication Electronically Signed: Erwin Lizama MD at 16:35 EST , Service support , Tibia/Fibula X-Ray 01/14/21 15:59 IMPRESSION: Profound osteopenia without acute fracture or suspicious osseous lesion. Soft tissue swelling around the ankle Electronically Signed: Erwin Lizama MD at 16:36 EST , Service support , Discharge Plan Triage Chief Complaint: Fall ED Provider: Montrell Anaya Dx/Rx/DC Orders Clinical Impression: Contusion of right hip and thigh Instructions: ED Hip Contusion, ED Fall Prevention Prescriptions: No Action calcium carbonate 600 MG tablet 600 mg PO BID RF: 0 simvastatin 20 MG tablet 20 mg PO QHS RF: 0 hydrochlorothiazide 25 MG tablet 25 mg PO DAILY RF: 0 metoprolol tartrate 25 MG tablet 25 mg PO BID RF: 0 jfguxgtw-ivp-SZ-lycopen-lutein [Centrum Silver] 1 EACH tablet 1 ea PO QHS RF: 0 cholecalciferol (vitamin D3) [Vitamin D3] 1,000 UNIT tablet 2,000 unit PO DAILY RF: 0 omega-3 fatty acids-fish oil [Fish Oil] 1 EACH capsule 1 ea PO DAILY RF: 0 Potassium Chloride [Klor-Con M20] 20 MEQ Tab.Er.Prt 20 meq PO DAILY RF: 0 levothyroxine 100 MCG tablet 100 mcg PO DAILY RF: 0 vitamins A,C,Q-otvj-rrpxjq [PreserVision AREDS] 1 EACH capsule 1 tab PO BID RF: 0 Primary Care Provider: Eric Gillespie Referrals: Eric Gillespie MD [Primary Care Provider] - 3-5 Days Disposition Disposition: Home, Self Care
[2021-01-14 21:10] VITALS: BP 127/49; PULSE 101; RESP 18; O2SAT 95
[2021-01-14 21:11] VITALS: BP 150/88; PULSE 101; RESP 18; O2SAT 95
--- NOTE | 2021-01-14 23:23 | NURSING ---
transport at bedside. report given. pt loaded onto their cot and departs at this time.
== END 2021-01-14 23:23 | disposition home or self-care (01) ==
PROVIDERS: Emergency Provider Emergency Medicine; PCP Family Medicine
DX: S70.01XA Contusion of right hip, initial encounter (principal); S70.11XA Contusion of right thigh, initial encounter; W18.30XA Fall on same level, unspecified, initial encounter; Y93.9 Activity, unspecified; Y92.9 Unspecified place or not applicable; Y99.9 Unspecified external cause status; I10 Essential (primary) hypertension; E03.9 Hypothyroidism, unspecified; E78.5 Hyperlipidemia, unspecified; Z79.899 Other long term (current) drug therapy
CPT/HCPCS: 72170; 73552; 73590; 99285

== ENCOUNTER 2021-01-22 09:44 | Observation (INO) | payer MEDICARE, SELFPAY ==
[2021-01-22 09:44] VITALS: BP 163/71; PULSE 95; RESP 18; TEMP 36.5; O2SAT 94; BMI 32.5
--- NOTE | 2021-01-22 10:07 | EKG12_ITS ---
Test Reason : WEAKNESS Blood Pressure : / mmHG Vent. Rate : 092 BPM Atrial Rate : 092 BPM P-R Int : 162 ms QRS Dur : 108 ms QT Int : 348 ms P-R-T Axes : 084 -27 062 degrees QTc Int : 430 ms Normal sinus rhythm Normal ECG Confirmed by LYNNE SEGAL, MARIELLA ([id number]), movie editor BENIGNO FUNES ([id number]) on 01/23/2021 2:06:03 PM Referred By: ROLANDO Confirmed By:MARIELLA BATISTA MD
--- NOTE | 2021-01-22 10:08 | EDS_ITS ---
HPI History of Present Illness Chief Complaint: Weakness Narrative Narrative: Patient presents to the emergency department with generalized weakness, stating that today she was too weak to get out of bed. She relates remote history that she fell back in December, over a month ago, and was having pain in the back of her legs. She states she saw a primary care provider/nurse practitioner on Thursday, and was put on prednisone for her pain. She lives at home alone. She states that she was too weak in her bilateral lower extremities to even get out of bed. She denies any chest pain or shortness of breath. No dysuria or hematuria. No diarrhea. She usually walks with a walker. [facility] Medical History HLD (hyperlipidemia) HTN (hypertension) Hypothyroid Home Medications Potassium Chloride [Klor-Con M20] 20 meq PO DAILY 11/09/14 [History Last Taken 12/22/17] calcium carbonate 600 mg PO BID 11/09/14 [History Last Taken 12/22/17 12:00] cholecalciferol (vitamin D3) [Vitamin D3] 2,000 unit PO DAILY 11/09/14 [History Last Taken 12/22/17] hydrochlorothiazide 25 mg PO DAILY 11/09/14 [History Last Taken 12/22/17] metoprolol tartrate 25 mg PO BID 11/09/14 [History Last Taken 12/22/17 09:00] brvlbrfo-gvf-VV-lycopen-lutein [Centrum Silver] 1 ea PO QHS 11/09/14 [History Last Taken 12/21/17] omega-3 fatty acids-fish oil [Fish Oil] 1 ea PO DAILY 11/09/14 [History Last Taken 12/22/17] simvastatin 20 mg PO QHS 11/09/14 [History Last Taken 12/21/17] levothyroxine 100 mcg PO DAILY 12/22/17 [History Last Taken 12/22/17] vitamins A,C,F-atyn-xssabs [PreserVision AREDS] 1 tab PO BID 12/22/17 [History Last Taken 12/22/17] Allergy/AdvReac Type Severity Reaction Status Date / Time No Known Allergies Allergy Verified 01/14/21 13:36 Surgical History History of open reduction and internal fixation (ORIF) procedure Social History Smoking Status: Never smoker ROS ROS ED ROS Narrative Constitutional: No fever, no chills. Weakness HEENT: No sore throat. No neck pain. No loss of vision. No rhinorrhea. Cardiovascular: No chest pain. No palpitations. No pedal edema. Respiratory: No cough, no shortness of breath. Abdominal: No abdominal pain. No nausea. No vomiting. Genitourinary: No dysuria. No hematuria. Musculoskeletal: No myalgias. No arthralgias. Neurologic: No headaches. No dizziness. No lightheadedness. Weakness of bilateral lower extremities. Skin: No rash. No change in color. Psychiatric: No depression. No anxiety. EXAM Physical Exam Narrative Exam Narrative: Afebrile. Vital signs noted. HEENT: Normocephalic. Atraumatic. PERRL, EOMI. Neck soft and supple. No point tenderness or step off. Cardiovascular: Regular rate and rhythm. No murmurs, rubs, or gallops appreciated. Respiratory: No tachypnea. Lungs clear to auscultation bilaterally. Positive kyphosis of thoracic back. Gastrointestinal: Abdomen soft, nontender, with normoactive bowel sounds. No rebound or guarding. Neurological: Awake. Alert. Nonfocal, nonlateralizing. Able to wiggle toes. Extension and flexion mechanisms of bilateral knees intact, range of motion limited secondary to pain and weakness. Skin: No rash. Normal color. No pallor. Musculoskeletal: No pedal edema. Range of motion of bilateral knees limited secondary to pain and weakness. Const Vital Signs: 01/22/21 09:44 01/22/21 10:45 Temperature 97.7 F L Temperature Source Oral Pulse Rate 95 Respiratory Rate 18 Respiratory Effort Labored Respiratory Pattern Tachypnea Blood Pressure 163/71 H Blood Pressure Mean 101 Pulse Ox 94 Oxygen Delivery Method Room Air MDM MDM MDM Narrative Medical decision making narrative: Comprehensive work-up was pursued. Initially, I had a discussion with the patient that if she is too weak to even get out of bed, that she may need temporary placement in rehabilitation. I do think that her bilateral lower extremity weakness may have a small component of effort dependence. She has normal white count of 9.1, hemoglobin stable of 13.4. Sodium is slightly low at 131, chloride 91 and low. Alk phos is slightly elevated at 156 which I think is nonspecific. Urinalysis shows no evidence of infection, negative ketones. Chest x-ray shows no acute process. This point in time, given her generalized weakness and inability to perform her ADLs, and the fact that she lives alone, patient was discussed with Dr. Polk for observation, as patient had been discussed with social work and she is unable to be placed in a facility directly from the emergency department. Patient is in stable condition. Lab Data Attestation: I reviewed the patient's lab results. Labs: Laboratory Results - last 24 hr 01/22/21 01/22/21 01/22/21 10:30 10:30 10:45 WBC 9.1 RBC 4.61 Hgb 13.4 Hct 39.8 MCV 86.3 MCH 29.1 MCHC 33.7 RDW Std Deviation 39.9 RDW Coeff of [place] 12.7 Plt Count 286 MPV 10.0 Immature Gran % (Auto) 0.700 Neut % (Auto) 72.4 H Lymph % (Auto) 12.4 L Pershing % (Auto) 14.0 H Eos % (Auto) 0.2 Baso % (Auto) 0.3 Absolute Neuts (auto) 6.6 Absolute Lymphs (auto) 1.13 Nucleated RBC % 0 Sodium 131 L Potassium 3.5 Chloride 91 L Carbon Dioxide 31.0 Anion Gap 9 BUN 9 Creatinine 0.51 L Estim Creat Clear Calc 48.38 Est GFR (MDRD) Af Amer 150 Est GFR (MDRD) Non-Af 124 BUN/Creatinine Ratio 17.8 Glucose 102 Calcium 9.2 Total Bilirubin 0.50 AST 25 ALT 27 Alkaline Phosphatase 156 H Troponin I High Sens 11 Total Protein 7.6 Albumin 3.5 Globulin 4.1 Albumin/Globulin Ratio 0.9 Urine Color Yellow Urine Clarity Sl. Cloudy Urine pH 6.5 Ur Specific [place] 1.010 Urine Protein 15 H Urine Glucose (UA) Normal Urine Ketones Negative Urine Occult Blood Negative Urine Nitrite Negative Urine Bilirubin Negative Urine Urobilinogen Normal Ur Leukocyte Esterase Negative Urine RBC 0 SEEN Urine WBC 0 SEEN Ur Squamous Epith Cells 0-5 SEEN Urine Bacteria 0 SEEN Urine Mucus 0 SEEN Radiography Diagnostic Testing: Clinical Impression(s) from Imaging Studies Chest X-Ray 01/22/21 11:10 IMPRESSION: No acute findings in the chest and unchanged when compared to 12/22/2017. Electronically Signed: Fabio Marie MD at 11:41 EST , Service support , Discharge Plan Triage Chief Complaint: Weakness ED Provider: Fabio Gu Dx/Rx/DC Orders Prescriptions: No Action calcium carbonate 600 MG tablet 600 mg PO BID RF: 0 simvastatin 20 MG tablet 20 mg PO QHS RF: 0 hydrochlorothiazide 25 MG tablet 25 mg PO DAILY RF: 0 metoprolol tartrate 25 MG tablet 25 mg PO BID RF: 0 smpyfbaq-gig-KC-lycopen-lutein [Centrum Silver] 1 EACH tablet 1 ea PO QHS RF: 0 cholecalciferol (vitamin D3) [Vitamin D3] 1,000 UNIT tablet 2,000 unit PO DAILY RF: 0 omega-3 fatty acids-fish oil [Fish Oil] 1 EACH capsule 1 ea PO DAILY RF: 0 Potassium Chloride [Klor-Con M20] 20 MEQ Tab.Er.Prt 20 meq PO DAILY RF: 0 levothyroxine 100 MCG tablet 100 mcg PO DAILY RF: 0 vitamins A,C,Y-utvl-pxfvij [PreserVision AREDS] 1 EACH capsule 1 tab PO BID RF: 0 Primary Care Provider: Eric Gillespie
[2021-01-22 10:50] LABS: Bacteria 0 SEEN /hpf (None Seen); Mucous, Urine 0 SEEN /hpf (<or=2+); Red Blood Cells-Urine 0 SEEN /hpf (0-5); White Blood Cells 0 SEEN /hpf (0-5)
[2021-01-22 10:56] LABS: Absolute Lymphocyte Count 1.13 X10^3/uL (0.83-4.51); Absolute Neutrophil Count 6.6 X10^3/uL (2.0-7.7); Basophil# 0.03 X10^3/uL; Basophil% 0.3 % (0-1); Eosinophil# 0.02 X10^3/uL; Eosinophils% 0.2 % (0-5); Hematocrit 39.8 % (37-47); Hemoglobin 13.4 g/dL (12.0-15.0); Lymphocyte # 1.13 X10^3/ul (0.83-4.51); Lymphocyte % 12.4 % (19-41); Mean Corp Hgb Conc 33.7 g/dL (32-36); Mean Corpuscular Hgb 29.1 pg (27.0-32.0); Mean Corpuscular Volume 86.3 fL (81-99); Monocyte# 1.28 X10^3/uL; NRBC Flagged by Analyzer 0 % (0-5); Neutrophil # 6.61 X10^3/uL (2.7-7.7); Neutrophil % 72.4 % (47-70); Platelet Count 286 K/mm3 (150-450); RBC Distribution Width CV 12.7 % (11.6-14.6); RBC Distribution Width SD 39.9 fl (35.1-43.9); Red Blood Count 4.61 M/mm3 (4.2-5.4); White Blood Count 9.1 K/mm3 (4.4-11.0)
--- NOTE | 2021-01-22 11:10 | RAD_ITS ---
EXAM: XR CHEST, 1 VIEW CLINICAL INDICATION: CAD TECHNIQUE: Frontal view of the chest. This report was created using [employer] report generation technology. COMPARISON: 12/22/2017. FINDINGS: LUNGS AND PLEURAL SPACES: Mild pulmonary hyperinflation. No suspicious infiltrates. No pneumothorax. No effusion. HEART: Mild cardiomegaly is unchanged. MEDIASTINUM: Central airways and mediastinal contour are unremarkable. BONES/JOINTS: Multiple old left posterior rib fractures are unchanged. SOFT TISSUES: Unremarkable. RAD/Chest 1 View (Portable) IMPRESSION: No acute findings in the chest and unchanged when compared to 12/22/2017. Electronically Signed: Fabio Marie MD at 11:41 EST , Service support ,
[2021-01-22 11:11] LABS: ALB/GLOB Ratio 0.9 RATIO (0.9-2.4); AST(SGOT) 25 U/L (15-37); Alanine Aminotransfer ALT/SGPT 27 U/L (13-56); Albumin, Serum 3.5 g/dL (3.2-5.0); Alkaline Phosphatase 156 U/L (45-117); Anion Gap 9 (5-15); BUN 9 mg/dL (7-18); BUN/Creat Ratio 17.8 RATIO (10-20); Calcium,Total 9.2 mg/dL (8.5-10.1); Chloride 91 mmol/L (98-107); Creatinine, Serum 0.51 mg/dL (0.55-1.02); EST Glomerular Filtration Rate 124 mL/min (>60); Est Glom Filt Rate - Afr Amer 150 mL/min (>60); Estimated Creatinine Clearance 48.38 ml/min; Globulin 4.1 g/dL (2.2-4.2); Glucose 102 mg/dL (74-106); Potassium 3.5 mmol/L (3.5-5.1); Protein, Total 7.6 g/dL (6.4-8.2); Sodium Level 131 mmol/L (136-145); Troponin-I HS 11 pg/mL (3.0-54.0)
[2021-01-22 11:16] LABS: Color, Urine Yellow (Yellow); Glucose, Dipstick Normal (Normal); Ketone-Dipstick Negative (Negative); Leukocyte Esterase-Dipstick Negative /ul (Negative); Nitrite-Dipstick Negative (Negative); Occult Blood-Urine Negative /ul (Negative); Protein-Dipstick 15 mg/dl (Negative); Urine Bilirubin Dipstick Negative (Negative); Urine Clarity Sl. Cloudy (Clear); Urine Urobilinogen Normal (Normal); Urine pH 6.5 (5.0 - 8.0)
[2021-01-22 11:23] LABS: Squamous Epithelial Cells - UA 0-5 SEEN /hpf (5-10)
--- NOTE | 2021-01-22 12:55 | CM.ED ---
Addendum entered by Kimberley Hoang 01/22/21 14:03: SW met with patient briefly and gave her the list of in network providers. Patient said that her first choice was [facility] however, this bond writer said that they had no beds. Patient said that then her choice would be to go to [place]. SW provided patient with list of SNF and printout of patient's in network SNF benefits. Plan: SNF at discharge. Original Note: [facility] Note SW spoke to MD. He advised patient lives alone and is too weak to get out of bed. MD said that patient can not go home as she is too weak. Patient has [employer] insurance and thus will need to be admitted for precert. SW provided patient with list of SNF for [facility]. Plan: SNF Placement Kimberley LEO
[2021-01-22 13:59] VITALS: BP 160/85; PULSE 106; PULSE 99; RESP 18; TEMP 36.6; O2SAT 95
--- NOTE | 2021-01-22 14:10 | MRI_ITS ---
EXAM: MR THORACIC SPINE WITHOUT INTRAVENOUS CONTRAST CLINICAL INDICATION: WEAKNESS OF LEGS -- Right femur prosthesis, rods TECHNIQUE: Multiplanar and multisequence MR images of the thoracic spine without intravenous contrast. This report was created using [employer] report generation technology. COMPARISON: CT chest 12/22/2017 FINDINGS: VERTEBRAE: There is abnormal increased STIR signal around the T9 vertebral body. There is low T1 signal around the region. This is concerning for possible nondisplaced fracture. Old compression deformity of T12 and L1. Loss of intervertebral disc height. There is endplate spondylosis of the vertebral body. Normal central canal and intervertebral neuroforamina. There is bilateral facet arthropathy. There is preservation of the normal thoracic kyphosis. No scoliosis. DISCS/SPINAL CANAL/NEURAL FORAMINA: Unremarkable. Normal disc height and morphology. Normal spinal canal and neuroforamina. SPINAL CORD: Unremarkable. Normal in signal and morphology. Normal conus medullaris. SOFT TISSUES: Unremarkable. MRI/Spine Thoracic (Routine) IMPRESSION: T9 fracture visualized. This is acute. No significant loss of body height. No retropulsed fragments. Electronically Signed: Angel Wade MD at 17:54 EST , Service support ,
--- NOTE | 2021-01-22 14:10 | MRI_ITS ---
STUDY: MR Spine Lumbar W/O Contrast 01/22/2021 5:54 PM REASON FOR EXAM: Female, 80 years old. Back pain Sciatica pain with bilateral PARAPLEGIA -- Right femur prosthesis, rods TECHNIQUE: MR Spine Lumbar W/O Contrast Standardized fat and water weighted pulse sequences were obtained COMPARISON: CT chest 12/22/2017 FINDINGS: Old compression deformity of T12 and L1 Normal lumbar lordosis. There is a levoscoliosis of the lumbar spine. Normal conus medullaris that terminates at the L1. L1-2: Loss of intervertebral disc height. There is endplate spondylosis of the vertebral body. There is bilateral facet arthropathy. Bilateral neural foraminal stenosis. Compression of exiting nerve roots. Posterior disc bulge osteophyte complex. Moderate spinal stenosis. L2-3: Loss of intervertebral disc height. There is endplate spondylosis of the vertebral body. Normal central canal and intervertebral neuroforamina. There is bilateral facet arthropathy. L3-4: Loss of intervertebral disc height. There is endplate spondylosis of the vertebral body. Normal central canal and intervertebral neuroforamina. There is bilateral facet arthropathy. L4-5: Loss of intervertebral disc height. There is endplate spondylosis of the vertebral body. There is bilateral facet arthropathy. Bilateral neural foraminal stenosis. Compression of exiting nerve roots. Grade 1 anterolisthesis of L4 on L5. This measures 2.4 mm. Severe spinal stenosis. L5-S1: Loss of intervertebral disc height. There is endplate spondylosis of the vertebral body. There is bilateral facet arthropathy. Bilateral neural foraminal stenosis. Compression of exiting nerve roots. Abnormal MRI signal in the S2 and S3 vertebral bodies suggesting fractures. Normal visualized paraspinous soft tissue structures. MRI/Spine Lumbar (Routine) IMPRESSION: Multilevel degenerative changes, as described above. Abnormal MRI signal in the S2 and S3 vertebral bodies suggesting fractures. Old compression deformity of T12 and L1. Severe spinal stenosis at L4-5. Moderate spinal stenosis at L1-2. Electronically Signed: Angel Wade MD at 17:59 EST , Service support ,
--- NOTE | 2021-01-22 14:12 | PCM.HP.STD ---
HPI - General General Date of Admission: 01/22/21 HPI Narrative AI WRAY, is a 80 F with past history as listed below was brought to ER by EMS ER with unable to get up from the bed or ambulate for last 2 to 3 days. She fell on her lumbar back/buttocks on January 01 and was able to ambulate on walker but for last 2 to 3 days she is not even able to get up. She complains of generalized weakness in both legs, left more than right, right knee more than left. She has history of right hip fracture and has right hip rods. She has a history of chronic sciatica pain with radiation all the way to the both feet toes. She denies urine retention, or any change in bladder or bowel habit. She has perineal sensation. She had lumbar spine x-ray in 2015 which shows demineralization and multilevel degenerative changes. Femur and pelvis x-ray in 01/2021 showed demineralization of osseous structure hip and SI joint arthrosis and surgical hardware in right femur and osteopenia. [facility] Medical History HLD (hyperlipidemia) HTN (hypertension) Hypothyroid Home Medications Centrum Silver 1 ea PO QHS 11/09/14 [History Last Taken 01/21/21] Fish Oil 1 ea PO DAILY 11/09/14 [History Last Taken 01/21/21] calcium carbonate 600 mg PO BID 11/09/14 [History Last Taken 01/21/21] cholecalciferol (vitamin D3) [Vitamin D3] 2,000 unit PO DAILY 11/09/14 [History Last Taken 01/21/21] hydrochlorothiazide 25 mg PO DAILY 11/09/14 [History Last Taken 01/21/21] metoprolol tartrate 25 mg PO BID 11/09/14 [History Last Taken 01/21/21] simvastatin 20 mg PO QHS 11/09/14 [History Last Taken 01/21/21] PreserVision AREDS 1 tab PO BID 12/22/17 [History Last Taken 01/21/21] levothyroxine 100 mcg PO DAILY 12/22/17 [History Last Taken 01/21/21] potassium chloride [Klor-Con M20] 20 meq PO DAILY 01/22/21 [History Last Taken 01/21/21] prednisone 40 mg PO DAILY 01/22/21 [History Last Taken 01/21/21] Allergy/AdvReac Type Severity Reaction Status Date / Time No Known Allergies Allergy Verified 01/14/21 13:36 Surgical History History of open reduction and internal fixation (ORIF) procedure Social History Smoking Status: Never smoker ROS ROS Narrative Constitutional: Reports fatigue and generalized weakness but more weakness in legs. HEENT: Reports systems reviewed and no addt'l complaints, except as documented Respiratory/Chest: Denies chest pain, shortness of breath at rest or with exertion Gastrointestinal: Denies coffee ground emesis, hematemesis or vomiting Genitourinary: Denies burning urination or new urinary tract symptoms. Denies urine retention but could not get to bathroom. Musculoskeletal: Reports bilateral knee joint pain and limited range of motion. Cannot left lower extremities. Neurologic: Bilateral leg weakness. Denies seizure-like activity skin: No ulcer. No rash Endocrinology: Reports systems reviewed and no addt'l complaints, except as documented Hematologic/Lymphatic: Reports systems reviewed and no addt'l complaints, except as documented Rest 12 ROS are negative except as mentioned in HPI Vital Signs Vital Signs Vital Signs: 01/22/21 09:44 01/22/21 10:45 01/22/21 13:59 Temperature 97.7 F L 97.9 F Temperature Source Oral Oral Pulse Rate 95 99 Respiratory Rate 18 18 Respiratory Effort Labored Respiratory Pattern Tachypnea Blood Pressure 163/71 H 160/85 H Blood Pressure Mean 101 110 Pulse Ox 94 95 Oxygen Delivery Method Room Air Room Air Weight Weight: 150 lb 9.211 oz Body Mass Index (BMI) 32.5 Physical Exam Narrative General: Alert, Oriented x3, Cooperative HEENT: Atraumatic, PERRLA, EOMI, Normocephalic Oral: No Gingival or Mucosal Lesions/ Ulcerations Neck: Supple, No JVD, Negative Carotid Bruits Lungs: Air entry equal in bilateral lung bases. No crepitation/rhonchi Cardiovascular: Regular rate, Regular Rhythm, Normal S1, Normal S2, No murmurs Abdomen: Bowel Sounds Present, Soft, Non Tender, Non-Distended : No renal angle tenderness. No suprapubic tenderness. Extremities: No edema, Capillary Refill Less than 3 Seconds Skin: No rashes, No breakdown Musculoskeletal: Tenderness in left knee more than right knee. Bilateral leg weakness, left more than right at knee and hip joints. Tenderness in lumbar spine. Neurological: Decreased sensation in right lower extremity than left. Cranial nerves II-XII grossly intact, DTR 2/4. Psych/Mental Status: Normal Affect, Appropriate. Results Lab / Micro Data Result Diagrams: 01/22/21 10:30 01/22/21 10:30 Labs: Laboratory Results - last 24 hr 01/22/21 10:30: WBC 9.1, RBC 4.61, Hgb 13.4, Hct 39.8, MCV 86.3, MCH 29.1, MCHC 33.7, RDW Std Deviation 39.9, RDW Coeff of [place] 12.7, Plt Count 286, MPV 10.0, Immature Gran % (Auto) 0.700, Neut % (Auto) 72.4 H, Lymph % (Auto) 12.4 L, [place] % (Auto) 14.0 H, Eos % (Auto) 0.2, Baso % (Auto) 0.3, Absolute Neuts (auto) 6.6, Absolute Lymphs (auto) 1.13, Nucleated RBC % 0 01/22/21 10:30: Sodium 131 L, Potassium 3.5, Chloride 91 L, Carbon Dioxide 31.0, Anion Gap 9, BUN 9, Creatinine 0.51 L, Estim Creat Clear Calc 48.38, Est GFR (MDRD) Af Amer 150, Est GFR (MDRD) Non-Af 124, BUN/Creatinine Ratio 17.8, Glucose 102, Calcium 9.2, Total Bilirubin 0.50, AST 25, ALT 27, Alkaline Phosphatase 156 H, Troponin I High Sens 11, Total Protein 7.6, Albumin 3.5, Globulin 4.1, Albumin/Globulin Ratio 0.9 01/22/21 10:45: Urine Color Yellow, Urine Clarity Sl. Cloudy, Urine pH 6.5, Ur Specific [place] 1.010, Urine Protein 15 H, Urine Glucose (UA) Normal, Urine Ketones Negative, Urine Occult Blood Negative, Urine Nitrite Negative, Urine Bilirubin Negative, Urine Urobilinogen Normal, Ur Leukocyte Esterase Negative, Urine RBC 0 SEEN, Urine WBC 0 SEEN, Ur Squamous Epith Cells 0-5 SEEN, Urine Bacteria 0 SEEN, Urine Mucus 0 SEEN Micro: Microbiology 01/22/21 10:39 Nasal Secretion SARS-CoV-2 Antigen (Rapid) - Final Radiology Impression Chest X-Ray 01/22/21 11:10 IMPRESSION: No acute findings in the chest and unchanged when compared to 12/22/2017. Electronically Signed: Fabio Marie MD at 11:41 EST , Service support , Assessment & Plan Assessment/Plan (1) Paraplegia, unspecified: PLAN: 1. Fall with resultant weakness in both legs, left more than right with chronic lumbar sciatica pain and lumbar spine, right hip and pelvis osteoporosis with inability to stand: Patient is being admitted on [facility]. Her her weakness seems more recent last several days but negative for cauda equina syndrome symptoms and signs. MRI lumbar and thoracic spine ordered. Discussed with optical engineering technician and she is okay for MRI even though she has right hip prosthesis. Pain control. PT and OT. Orthospine Dr. Blanco consult for further evaluation and opinion. Patient might need subacute rehab. 2. Chronic osteoporosis with kyphosis and right hip fracture status post naomie and inability of activities of daily living 3. Hypertension, dyslipidemia and hypothyroidism: TSH tomorrow a.m. Home medications reconciliation done. Living will/advanced directive/end of life care: Patient does have living will or advanced directive. She lives alone and does not have son or daughter. She does not have power of regulatory attorney for health. After discussion of benefits/risks procedures involved with full code, DNR CC arrest and DNR CC, the patient opted for DNR-CC Arrest with no intubation Patient does not want artificial life support including intubation, tube feed, ventilator and/chest compression, central venous catheter, vasopressor and DC shock if needed Total time spent in [id number] encounter in discussion of advanced directive 16 minutes. Charges/Coding Visit Charges OBSV E&M: 06394 Initial observation care L3 Procedures Hospitalists Procedures: 42288 Advncd Care Plan 30 Min
[2021-01-22 14:27] VITALS: BMI 32.3
[2021-01-22 14:47] VITALS: BP 132/52; PULSE 113; RESP 18; TEMP 36.9; O2SAT 98
[2021-01-22 14:58] LABS: Magnesium 2.5 mg/dL (1.6-2.6)
[2021-01-22] MEDS: 0.9% Normal Saline 1,000 ML 100 ML IV (17:48)
[2021-01-22] MEDS: Potassium Chloride Oral Tablet 20 MEQ PO (17:53)
[2021-01-22] MEDS: Enoxaparin 40 MG/0.4 ML Syringe SC (17:54)
[2021-01-22] MEDS: Multivitamin (Healthy Eyes) Capsule 1 CAP PO (17:54)
[2021-01-22 20:08] VITALS: BP 102/50; PULSE 109; RESP 17; TEMP 36.9; O2SAT 94
[2021-01-22 21:53] VITALS: PULSE 101
[2021-01-22] MEDS: Calcium Carbonate 500 MG Tablet PO (21:53)
[2021-01-22] MEDS: Atorvastatin Calcium 10 MG Tablet PO (21:53)
[2021-01-22] MEDS: Metoprolol Tartrate 25 MG Tablet PO (21:53)
[2021-01-22] MEDS: Nystatin Powder 15gm Bottle 1 APPLIC TOPICAL (21:54)
[2021-01-23] VITALS (8 sets, daily range): BP systolic 113–125; BP diastolic 58–70; PULSE 96–106; RESP 17–20; TEMP 36.6–36.9; O2SAT 93–97
[2021-01-23] MEDS: Nystatin Powder 15gm Bottle 1 APPLIC TOPICAL ×3 (05:55→20:03)
[2021-01-23] MEDS: Levothyroxine 100 MCG Tablet PO (05:56)
[2021-01-23 06:00] LABS: Anion Gap 6 (5-15); BUN 8 mg/dL (7-18); BUN/Creat Ratio 23.5 RATIO (10-20); Calcium,Total 8.2 mg/dL (8.5-10.1); Chloride 98 mmol/L (98-107); Creatinine, Serum 0.34 mg/dL (0.55-1.02); EST Glomerular Filtration Rate 197 mL/min (>60); Est Glom Filt Rate - Afr Amer 238 mL/min (>60); Glucose 83 mg/dL (74-106); Potassium 4.2 mmol/L (3.5-5.1); Sodium Level 131 mmol/L (136-145); Thyroid Stim Hormone (TSH) 1.34 uIU/mL (0.358-3.74)
[2021-01-23] MEDS: hydroCHLOROthiazide 25 MG Tablet PO (08:26)
[2021-01-23] MEDS: Multivitamin (Healthy Eyes) Capsule 1 CAP PO ×2 (08:26→16:55)
[2021-01-23] MEDS: Potassium Chloride Oral Tablet 20 MEQ PO (08:26)
[2021-01-23] MEDS: Metoprolol Tartrate 25 MG Tablet PO ×2 (08:26→20:03)
[2021-01-23] MEDS: Cholecalciferol (VIT D3) 25 MCG TABLET (1,000 UNITS) 50 MCG PO (08:26)
[2021-01-23] MEDS: Enoxaparin 40 MG/0.4 ML Syringe SC (08:27)
[2021-01-23] MEDS: Calcium Carbonate 500 MG Tablet PO ×2 (08:27→20:03)
--- NOTE | 2021-01-23 09:55 | CASEMGMT ---
PEPE noted ED SW worked with patient and patient's first SNF choice is [facility]. SW spoke with patient and she confirmed she would like [facility]. PEPE explained to patient that she will stay in the hospital until her insurance gives the okay for the [facility]cf. PEPE asked patient if she would like PEPE to call Taina her healthcare POA. She would like PEPE to call Taina. PEPE called Vanessa with [facility] and also faxed referral. Malinda C[place]
--- NOTE | 2021-01-23 10:15 | CASEMGMT ---
PEPE received a call from Vanessa and [facility] can accept patient. PEPE called Taina Ahn, patient's Healthcare POA. PEPE let Taina know that patient would like to go to [facility] at discharge. PEPE also let Taina know that patient mentioned she will need someone to get her some clothes. PEPE gave Taina patient's room number and the phone number to her room. PEPE then transferred the call to patient's room per Taina's request. Plan: [facility] pending pre-cert. Malinda [place]
--- NOTE | 2021-01-23 10:37 | PN.HOSP_ITS ---
Subjective Subjective Doing well, no issues overnight. Denies any back pain Objective Data Objective Data Vital Signs: Vital Signs Temp Pulse Resp BP Pulse Ox 98.2 F 106 H 20 H 125/62 H 93 01/23/21 08:24 01/23/21 08:26 01/23/21 08:24 01/23/21 08:24 01/23/21 08:24 Oxygen Delivery Method Room Air Weight: 149 lb 11.102 oz Body Mass Index (BMI) 32.3 Intake & Output: Intake and Output for Last 24 Hours 01/22/21 01/23/21 01/24/21 03:59 03:59 03:59 Intake Total 980 / 980 1000 / 1000 Output Total 100 / 100 800 / 800 Balance 880 / 880 200 / 200 Lab / Micro Data Result Diagrams: 01/22/21 10:30 01/23/21 04:56 Labs: Laboratory Results - last 24 hr 01/22/21 10:30: WBC 9.1, RBC 4.61, Hgb 13.4, Hct 39.8, MCV 86.3, MCH 29.1, MCHC 33.7, RDW Std Deviation 39.9, RDW Coeff of Marshall 12.7, Plt Count 286, MPV 10.0, Immature Gran % (Auto) 0.700, Neut % (Auto) 72.4 H, Lymph % (Auto) 12.4 L, [place] % (Auto) 14.0 H, Eos % (Auto) 0.2, Baso % (Auto) 0.3, Absolute Neuts (auto) 6.6, Absolute Lymphs (auto) 1.13, Nucleated RBC % 0 01/22/21 10:30: Sodium 131 L, Potassium 3.5, Chloride 91 L, Carbon Dioxide 31.0, Anion Gap 9, BUN 9, Creatinine 0.51 L, Estim Creat Clear Calc 48.38, Est GFR (MDRD) Af Amer 150, Est GFR (MDRD) Non-Af 124, BUN/Creatinine Ratio 17.8, Glucose 102, Calcium 9.2, Total Bilirubin 0.50, AST 25, ALT 27, Alkaline Phosphatase 156 H, Troponin I High Sens 11, Total Protein 7.6, Albumin 3.5, Globulin 4.1, Albumin/Globulin Ratio 0.9 01/22/21 10:30: Magnesium 2.5 01/22/21 10:45: Urine Color Yellow, Urine Clarity Sl. Cloudy, Urine pH 6.5, Ur Specific [place] 1.010, Urine Protein 15 H, Urine Glucose (UA) Normal, Urine Ketones Negative, Urine Occult Blood Negative, Urine Nitrite Negative, Urine Bilirubin Negative, Urine Urobilinogen Normal, Ur Leukocyte Esterase Negative, Urine RBC 0 SEEN, Urine WBC 0 SEEN, Ur Squamous Epith Cells 0-5 SEEN, Urine Bacteria 0 SEEN, Urine Mucus 0 SEEN 01/23/21 04:56: Sodium 131 L, Potassium 4.2, Chloride 98, Carbon Dioxide 27.0, Anion Gap 6, BUN 8, Creatinine 0.34 L, Estim Creat Clear Calc 48.10, Est GFR (MDRD) Af Amer 238, Est GFR (MDRD) Non-Af 197, BUN/Creatinine Ratio 23.5 H, Glucose 83, Calcium 8.2 L, TSH 1.34 Micro: Microbiology 01/22/21 10:39 Nasal Secretion SARS-CoV-2 Antigen (Rapid) - Final Radiography Diagnostic Testing: Radiology Impression Chest X-Ray 01/22/21 11:10 IMPRESSION: No acute findings in the chest and unchanged when compared to 12/22/2017. Electronically Signed: Fabio Marie MD at 11:41 EST , Service support , Lumbar Spine MRI 01/22/21 14:10 IMPRESSION: Multilevel degenerative changes, as described above. Abnormal MRI signal in the S2 and S3 vertebral bodies suggesting fractures. Old compression deformity of T12 and L1. Severe spinal stenosis at L4-5. Moderate spinal stenosis at L1-2. Electronically Signed: Angel Wade MD at 17:59 EST , Service support , Thoracic Spine MRI 01/22/21 14:10 IMPRESSION: T9 fracture visualized. This is acute. No significant loss of body height. No retropulsed fragments. Electronically Signed: Angel Wade MD at 17:54 EST , Service support , Physical Exam Const alert, oriented x3 and no apparent distress General Appearance: cooperative HEENT normocephalic and moist oral mucous membranes Eyes PERRL, EOMs intact bilaterally and conjunctivae normal Neck supple and no JVD Resp normal respiratory effort, no retractions, no use of accessory muscles and clear to auscultation bilaterally Auscultation: Negative for crackles, rales, rhonchi or wheezes Cardio regular rate, regular rhythm, S1 normal heart sound, S2 normal heart sound and no murmurs GI soft to palpation, non-tender and non-distended; Negative for hepatosplenomegaly Back/Spine Back/Spine Narrative: Tenderness to lumbar spine Extremity no clubbing, cyanosis or edema Skin no rashes or lesions noted Neuro no focal motor deficits and no sensory deficits noted Psych affect normal Appearance: appropriate Assessment & Plan Assessment/Plan (1) Paraplegia, unspecified: PLAN: 1. Fall with resultant weakness in both legs, left more than right with chronic lumbar sciatica pain and lumbar spine, right hip and pelvis osteoporosis with inability to stand: [facility] Her her weakness seems more recent last several days but negative for cauda equina syndrome symptoms and signs. MRI lumbar and thoracic spine ordered. Discussed with rehabilitation therapy technician and she is okay for MRI even though she has right hip prosthesis. Pain control. PT and OT. Orthospine Dr. Blanco consult for further evaluation and opinion. Patient might need subacute rehab. 01/23/2021: MRI of the thoracic spine demonstrates an acute T9 fracture, lumbar spine MRI demonstrates severe spinal stenosis at L4-L5 with old compression fractures at T12 and L1. There is possible fractures on S2 and S3 as well as moderate spinal stenosis at L1-L2 therefore spine surgery was consulted for an opinion. Despite this given the fact that she has been unable to walk for the last several days we will continue with PT/OT and likely placement at a SNF in the next couple of days. 2. Chronic osteoporosis with kyphosis and right hip fracture status post naomie and inability of activities of daily living 01/23/2021: We will start on a bisphosphonate 3. Hypertension, dyslipidemia and hypothyroidism: TSH tomorrow a.m. Home medications reconciliation done. DVT: Lovenox Charges/Coding Visit Charges OBSV E&M: 09491 Subsequent observation care L2
--- NOTE | 2021-01-23 11:10 | CON.PCM_ITS ---
Consult Date of Consult: 01/23/[address] Blanco dictating consultation on Delaney Anderson. I saw Mrs. Anderson in room 103 and with the patient's permission. This was at the request of Dr. Polk. Reason for the consult was that she has lost her ability to ambulate. She states to me that she has been ambulating with a walker for approximately 4 to 5 years. Starting about a week ago she was unable to walk. She has history of having had a hip fracture on the right that underwent ORIF. She states that her pain travels around. Sometimes it hurts and is her back and sometimes it does not. She had a fall about 3 weeks ago when she fell on her back. She felt some pain initially but the pain has since felt somewhat better. She states that she does not know why she cannot walk. I asked her if it was because of pain and she says that she did not really know. Note that upon examination she has good anterior tibial strength bilaterally she also has good quad strength bilaterally. She can flex the left hip flexors to where she can hold the leg up but she can on the right. That is probably because of her old hip fracture. She is areflexic bilaterally. She does not have any specific muscle atrophy. She is obviously deconditioned. I reviewed the MRI scan of the thoracic spine and MRI scan of the lumbar spine. She has remote compression fractures of L1 and T12. However these are not pressing on the spinal cord to any significant degree. She does have significant spinal stenosis with a degenerative spondylolisthesis at L4-5. H owever it took 30 or 40 years for that to occur in the likelihood that all of a sudden she cannot walk because of it is not very probable. In addition she has good anterior tibialis EHL strength and quad strength of both lower extremities. I feel strongly that her inability to walk is not a true paraplegia. There is no evidence of it seen on the MRI scan of both thoracic and MRI scans. In ad dition she has good motor strength of certain muscle groups in both lower extremities. Deconditioning probably has something to do with it. I would recommend that she be put in a rehab for aggressive physical therapy. Thank you for this consultation. This is Dr. Blanco dictating.
[2021-01-23] MEDS: oxyCODONE 5 MG Tablet PO (14:01)
--- NOTE | 2021-01-23 15:20 | CASEMGMT ---
STU CM in to complete MURRELL form with patient. RN KENDRA explained MURRELL form to patient, patient voiced understanding. Patient signed MURRELL form and filed in chart. Patient provided with copy of signed MURRELL form. Patient had no further questions or concerns at this time.
--- NOTE | 2021-01-23 15:28 | CASEMGMT ---
PEPE faxed all necessary information to [employer], the [employer] that handles pre-certs for [facility]. Malinda [place]
[2021-01-23] MEDS: Atorvastatin Calcium 10 MG Tablet PO (20:02)
[2021-01-24] VITALS (7 sets, daily range): BP systolic 114–142; BP diastolic 56–73; PULSE 71–97; RESP 14–18; TEMP 36.5–36.9; O2SAT 93–99
[2021-01-24] MEDS: Alendronate Sodium 70 MG Tablet PO (06:13)
[2021-01-24] MEDS: Nystatin Powder 15gm Bottle 1 APPLIC TOPICAL ×3 (06:13→20:09)
[2021-01-24] MEDS: Levothyroxine 100 MCG Tablet PO (06:13)
[2021-01-24] MEDS: Multivitamin (Healthy Eyes) Capsule 1 CAP PO ×2 (08:16→16:31)
[2021-01-24] MEDS: Potassium Chloride Oral Tablet 20 MEQ PO (08:16)
[2021-01-24] MEDS: Cholecalciferol (VIT D3) 25 MCG TABLET (1,000 UNITS) 50 MCG PO (08:16)
[2021-01-24 08:40] LABS: Absolute Lymphocyte Count 1.49 X10^3/uL (0.83-4.51); Absolute Neutrophil Count 5.9 X10^3/uL (2.0-7.7); Basophil# 0.05 X10^3/uL; Basophil% 0.6 % (0-1); Eosinophils% 1.2 % (0-5); Hematocrit 38.7 % (37-47); Hemoglobin 12.8 g/dL (12.0-15.0); Lymphocyte # 1.49 X10^3/ul (0.83-4.51); Lymphocyte % 17.7 % (19-41); Mean Corp Hgb Conc 33.1 g/dL (32-36); Mean Corpuscular Hgb 29.2 pg (27.0-32.0); Mean Corpuscular Volume 88.2 fL (81-99); Mean Platelet Vol. 9.9 fl (6.2-12.0); Monocyte# 0.83 X10^3/uL; Monocyte% 9.8 % (0-10); NRBC Flagged by Analyzer 0 % (0-5); Neutrophil # 5.89 X10^3/uL (2.7-7.7); Neutrophil % 69.8 % (47-70); Platelet Count 209 K/mm3 (150-450); RBC Distribution Width CV 12.7 % (11.6-14.6); Red Blood Count 4.39 M/mm3 (4.2-5.4); White Blood Count 8.4 K/mm3 (4.4-11.0)
[2021-01-24 09:10] LABS: Anion Gap 6 (5-15); BUN 8 mg/dL (7-18); Calcium,Total 8.7 mg/dL (8.5-10.1); Chloride 94 mmol/L (98-107); Creatinine, Serum 0.36 mg/dL (0.55-1.02); EST Glomerular Filtration Rate 183 mL/min (>60); Est Glom Filt Rate - Afr Amer 221 mL/min (>60); Glucose 93 mg/dL (74-106); Potassium 3.8 mmol/L (3.5-5.1); Sodium Level 129 mmol/L (136-145)
[2021-01-24] MEDS: hydroCHLOROthiazide 25 MG Tablet PO (09:29)
[2021-01-24] MEDS: Metoprolol Tartrate 25 MG Tablet PO ×2 (09:29→20:08)
[2021-01-24] MEDS: Enoxaparin 40 MG/0.4 ML Syringe SC (09:29)
[2021-01-24] MEDS: Calcium Carbonate 500 MG Tablet PO ×2 (09:29→20:09)
--- NOTE | 2021-01-24 09:50 | CASEMGMT ---
PEPE called [facility] and spoke with Bianca. [facility] received PEPE's fax and request for per-cert yesterday. The case is still under review. PEPE will continue to follow and will check back with Luanne later today if still no answer. Malinda Urena [employer]MAN/WOMAN [employer]
--- NOTE | 2021-01-24 14:27 | CASEMGMT ---
PEPE called [facility] to check on status of pre-cert. PEPE spoke with aKti Parikh connected PEPE with a nurse reviewer. PEPE spoke with Carmen a nurse reviewer at [facility]. Carmen was going to go over clinicals verbally, but then she realized PEPE faxed clinicals. She told PEPE to summer child caregiver her about a half an hour or maybe a little more depending on the clinicals and she will get back to PEPE. Carmen confirmed PEPE's phone number. PEPE thanked her for her assistance. Malinda Urena [employer] LOOKOUT [employer]HICLE WASHER
[2021-01-24] MEDS: guaiFENesin 10 ML UDC (200MG/10ML) PO (14:54)
--- NOTE | 2021-01-24 15:49 | CASEMGMT ---
Patient was approved to go to [place]. SW notified physician. Await orders. Malinda [place]
--- NOTE | 2021-01-24 16:40 | CASEMGMT ---
PEPE notified patient and her POA of the discharge to [place]. Plan: d/c to [place] under skilled level of care on a convalescent stay. [facility] will transport . Malinda C[place]
--- NOTE | 2021-01-24 17:13 | PCM.TXEXTCAR ---
Diet 01/22/21 14:27 Diet: Cardiac - Heart Healthy Food consistency:: Regular Liquid Consistency:: Regular/Thin Wound(s) scratch to rt great toe: Wound Type: cut/scratch 2nd to last toe rt foot: Wound Type: Pressure Injury Therapies Physical Therapy: Eval and Treat Occupational Therapy: Eval and Treat Problem/Diagnosis (1) Generalized weakness: Status: Acute (2) Inability to perform activities of daily living: Status: Acute (3) HLD (hyperlipidemia): Status: Chronic (4) HTN (hypertension): Status: Chronic (5) Back pain: Status: Acute (6) Osteoporosis: Status: Chronic (7) Hypothyroidism: Status: Chronic Allergies/Procedures Done in Hospital Allergies No Known Allergies Allergy (Verified 01/14/21 13:36) Procedures: None Type of Care/Length of Stay Estimated LOS: Convalescent Care Less Than 30 days Type of Care Needed: Skilled Rehab Potential: Good Prognosis: Good Additional Orders/Day of Discharge H&P will serve as current which was dated: 01/22/21 Day of Discharge: 01/24/21 Discharge Plan Admission Admit Date/Time: 01/22/21 14:02 Primary Reason for Your Visit: Generalized weakness Attending Provider: Eric Gomez Primary Care Provider: Eric Gillespie Consulting Providers: Rick Blanco Discharge Orders/Prescriptions Prescriptions: New acetaminophen [Tylenol] 325 mg Tablet 650 mg PO Q6H PRN PRN (Reason: Pain Score 1-10/Temp > 100.7 F) Qty: 0 RF: 0 alendronate 70 mg Tablet 70 mg PO Q7D@0700 Qty: 0 RF: 0 sennosides-docusate sodium [Stool Softener-Stimulant Laxat] 8.6-50 mg Tablet 2 tab PO BID PRN PRN (Reason: Constipation) Qty: 0 RF: 0 nystatin [Nyamyc] 100,000 unit/gram Powder 1 applic topical TID Qty: 0 RF: 0 oxycodone 5 mg Tablet 5 mg PO Q6H 7 Days Qty: 20 RF: 0 Continued calcium carbonate 600 MG tablet 600 mg PO BID RF: 0 simvastatin 20 MG tablet 20 mg PO QHS RF: 0 hydrochlorothiazide 25 MG tablet 25 mg PO DAILY RF: 0 metoprolol tartrate 25 MG tablet 25 mg PO BID RF: 0 Centrum Silver 1 EACH tablet 1 ea PO QHS RF: 0 cholecalciferol (vitamin D3) [Vitamin D3] 1,000 UNIT tablet 2,000 unit PO DAILY RF: 0 levothyroxine 100 MCG tablet 100 mcg PO DAILY RF: 0 PreserVision AREDS 1 EACH capsule 1 tab PO BID RF: 0 potassium chloride [Klor-Con M20] 20 mEq tablet,ER particles/crystals 20 meq PO DAILY RF: 0 Discontinued Fish Oil 1 EACH capsule 1 ea PO DAILY RF: 0 prednisone 20 mg tablet 40 mg PO DAILY RF: 0 Referrals / Follow Up: Eric Gillespie MD [Primary Care Provider] -
--- NOTE | 2021-01-24 17:23 | DS.PCM_ITS ---
Providers Date of Admission: 01/22/21 Date of Discharge: 01/24/21 Primary Care Physician: Dr. Eric Gillespie MD Consultations 01/22/21 14:27 Consult: Orthopedics Routine Consulting Provider: Rick Blanco Reason for Consult: b/l Leg weakness for 3-4 days, fall jan 01 EMERGENT Consult: No MD Notified: Yes Date Notified: 01/22/21 Time Notified: 14:35 Method of Notification: Verbal Reason For Visit: GENERALIZED WEAKNESS,INABILITY TO PERFORM ADL'S Diagnosis Discharge Diagnosis (1) Generalized weakness: Status: Acute Code(s): R53.1 - Weakness (2) Inability to perform activities of daily living: Status: Acute Code(s): Z78.9 - Other specified health status (3) HLD (hyperlipidemia): Status: Chronic Code(s): E78.5 - Hyperlipidemia, unspecified (4) HTN (hypertension): Status: Chronic Code(s): I10 - Essential (primary) hypertension (5) Back pain: Status: Acute Code(s): M54.9 - Dorsalgia, unspecified (6) Osteoporosis: Status: Chronic Code(s): M81.0 - Age-related osteoporosis without current pathological fracture (7) Hypothyroidism: Status: Chronic Code(s): E03.9 - Hypothyroidism, unspecified Plan: 1. Acute compression fracture T9 secondary to osteoporosis #2 spinal stenosis #3 chronic osteoporosis #4 essential hypertension #5 hyperlipidemia Medications at Discharge Home Medications Centrum Silver 1 ea PO QHS 11/09/14 calcium carbonate 600 mg PO BID 11/09/14 cholecalciferol (vitamin D3) [Vitamin D3] 2,000 unit PO DAILY 11/09/14 hydrochlorothiazide 25 mg PO DAILY 11/09/14 metoprolol tartrate 25 mg PO BID 11/09/14 simvastatin 20 mg PO QHS 11/09/14 PreserVision AREDS 1 tab PO BID 12/22/17 levothyroxine 100 mcg PO DAILY 12/22/17 potassium chloride [Klor-Con M20] 20 meq PO DAILY 01/22/21 acetaminophen [Tylenol] 650 mg PO Q6H PRN PRN #0 tab 01/24/21 alendronate 70 mg PO Q7D@0700 #0 tab 01/24/21 nystatin [Nyamyc] 1 applic TOPICAL TID #0 g 01/24/21 oxycodone 5 mg PO Q6H 7 Days #20 tab 01/24/21 sennosides-docusate sodium [Stool Softener-Stimulant Laxat] 2 tab PO BID PRN PRN #0 tab 01/24/21 Hospital Course Operations None Procedures None Summary of Care Provided Minutes Spent on Discharge: 31 Hospital Course: This 80-year-old white female was seen in the emergency room at [facility] with a chief complaint of generalized weakness. Patient also complained of pain in her lower back and down her legs. Work-up in the emergency room included labs which showed a normal CBC, chemistry profile was largely unremarkable. Urinalysis showed no evidence of urinary tract infection. Chest x-ray showed no acute process. Patient was placed in observation status on PCU, she was seen in consultation by PT and OT as well as orthopedic surgery concerning her spinal stenosis. It was recommended due to her age and comorbidities that she not undergo back surgery, patient agreed to go to an extended care facility for short-term rehab services. On 01/24/2021, patient was seen and examined: On examination she appeared frail and older than her stated age, she does not appear to be in any distress. Vital signs as documented. Skin warm and dry and without overt rashes. Neck without JVD, thyroid appears normal, trachea is midline, neck is supple. Lungs clear, normal air movement was noted. Heart exam notable for regular rhythm, normal sounds and absence of murmurs, rubs or gallops. Abdomen unremarkable and without evidence of organomegaly, masses, or abdominal aortic enlargement, bowel sounds are present in all 4 quadrants, no abdominal tenderness was noted. Extremities nonedematous, no cyanosis was noted, no clubbing was noted. Neuro: Cranial n erves II through XII are grossly intact, no focal motor deficits were noted, sensation to light touch and pinprick is intact. Psych: Patient is alert and oriented x3, she does not appear anxious or depressed, she does not appear agitated. On 01/24/2021, patient was transferred to a local extended care facility for short-term rehab services. Patient was in stable condition at the time of discharge. Weight / BMI Weight Weight: 67.9 kg Body Mass Index (BMI) 32.3 ABG / Lab / Microbiology Data Result Diagrams: 01/24/21 07:46 01/24/21 07:46 Laboratory: Laboratory Results - last 24 hr 01/24/21 07:46: WBC 8.4, RBC 4.39, Hgb 12.8, Hct 38.7, MCV 88.2, MCH 29.2, MCHC 33.1, RDW Std Deviation 41.0, RDW Coeff of [place] 12.7, Plt Count 209, MPV 9.9, Immature Gran % (Auto) 0.900, Neut % (Auto) 69.8, Lymph % (Auto) 17.7 L, [place] % (Auto) 9.8, Eos % (Auto) 1.2, Baso % (Auto) 0.6, Absolute Neuts (auto) 5.9, Absolute Lymphs (auto) 1.49, Nucleated RBC % 0 01/24/21 07:46: Sodium 129 L, Potassium 3.8, Chloride 94 L, Carbon Dioxide 29.0, Anion Gap 6, BUN 8, Creatinine 0.36 L, Estim Creat Clear Calc 48.10, Est GFR (MDRD) Af Amer 221, Est GFR (MDRD) Non-Af 183, BUN/Creatinine Ratio 22.0 H, Glucose 93, Calcium 8.7 Microbiology: Microbiology 01/22/21 10:39 Nasal Secretion SARS-CoV-2 Antigen (Rapid) - Final Meaningful Use Info Meaningful Use Diagnoses (Choose all that apply): None applicable Discharge Plan Admission Admit Date/Time: 01/22/21 14:02 Primary Reason for Your Visit: Generalized weakness Attending Provider: Eric Gomez Primary Care Provider: Eric Gillespie Consulting Providers: Rick Blanco Discharge Orders/Prescriptions Prescriptions: New acetaminophen [Tylenol] 325 mg Tablet 650 mg PO Q6H PRN PRN (Reason: Pain Score 1-10/Temp > 100.7 F) Qty: 0 RF: 0 alendronate 70 mg Tablet 70 mg PO Q7D@0700 Qty: 0 RF: 0 sennosides-docusate sodium [Stool Softener-Stimulant Laxat] 8.6-50 mg Tablet 2 tab PO BID PRN PRN (Reason: Constipation) Qty: 0 RF: 0 nystatin [Nyamyc] 100,000 unit/gram Powder 1 applic topical TID Qty: 0 RF: 0 oxycodone 5 mg Tablet 5 mg PO Q6H 7 Days Qty: 20 RF: 0 Continued calcium carbonate 600 MG tablet 600 mg PO BID RF: 0 simvastatin 20 MG tablet 20 mg PO QHS RF: 0 hydrochlorothiazide 25 MG tablet 25 mg PO DAILY RF: 0 metoprolol tartrate 25 MG tablet 25 mg PO BID RF: 0 Centrum Silver 1 EACH tablet 1 ea PO QHS RF: 0 cholecalciferol (vitamin D3) [Vitamin D3] 1,000 UNIT tablet 2,000 unit PO DAILY RF: 0 levothyroxine 100 MCG tablet 100 mcg PO DAILY RF: 0 PreserVision AREDS 1 EACH capsule 1 tab PO BID RF: 0 potassium chloride [Klor-Con M20] 20 mEq tablet,ER particles/crystals 20 meq PO DAILY RF: 0 Discontinued Fish Oil 1 EACH capsule 1 ea PO DAILY RF: 0 prednisone 20 mg tablet 40 mg PO DAILY RF: 0 Referrals / Follow Up: Eric Gillespie MD [Primary Care Provider] - Disposition Disposition (needs filled in before D/C Order can be placed): [facility] Facility Charges/Coding Visit Charges OBSV E&M: 44801 Observation care discharge
--- NOTE | 2021-01-24 17:48 | NURSING ---
This RN called and gave report to STU Valenzuela at [place].
[2021-01-24] MEDS: Atorvastatin Calcium 10 MG Tablet PO (20:08)
--- NOTE | 2021-01-24 21:28 | NURSING ---
update given to Sandra PERAZA at [place]. pt is being escorted out of building by [facility] at this time.
== END 2021-01-24 21:30 | disposition skilled nursing facility (03) ==
LOC: ED 13:40 → PCU 15:05
PROVIDERS: Family Medicine; Admitting Provider Internal Medicine; Emergency Provider Emergency Medicine; PCP Family Medicine; Visit Provider Internal Medicine
DX: M48.55XA Collapsed vertebra, not elsewhere classified, thoracolumbar region, initial encounter for fracture (principal); R53.1 Weakness; E78.5 Hyperlipidemia, unspecified; I10 Essential (primary) hypertension; E03.9 Hypothyroidism, unspecified; Z79.899 Other long term (current) drug therapy; Z79.52 Long term (current) use of systemic steroids; Z79.890 Hormone replacement therapy; G82.20 Paraplegia, unspecified; M48.061 Spinal stenosis, lumbar region without neurogenic claudication
CPT/HCPCS: 36415; 51702; 71045; 72146; 72148; 80048; 80053; 81001; 83735; 84443; 84484; 85025; 87426; 93005; 96360; 96361; 96372; 97163; 97166; 99218; 99285; J7030; J7040; A4216; G0378